=== PATIENT | female | born 1960 | race Caucasian/White ===

== ENCOUNTER 2016-05-13 10:49 | Inpatient (IN) | payer MEDICARE, OTHER ==
[~2016-05-13] VITALS: Ht 162.6 cm; Wt 100.0 kg
[~2016-05-13 10:49] MED LIST: BUSP15TA PO; BUSP5 PO; CLOT1%T TOPICAL; FURO20TA PO; GABA100C4 PO; LACT10SO47 PO; METO50TA PO; MORP1INJ45 PO; OMEP20TA PO; PRAV10 PO; PRAV20 PO; RIFA550 PO; SPIR100 PO; SPIR50TA21 PO; TIZA4 PO; ZOFR4TAB3 SL
[2016-05-13 11:09] VITALS: BP 113/56; PULSE 58; RESP 22; TEMP 97.9; O2SAT 97
--- NOTE | 2016-05-13 12:07 | RADRPT ---
EXAM DATE/TIME: 05/13/2016 11:56 [facility] COMPARISON: CHEST PA & LAT, January 20, 2015, 21:54. INDICATIONS : Short of breath. Syncope after fall 1 day ago. MEDICAL HISTORY : Hypercholesterolemia. Cirrhosis. Gastroesophageal reflux disease. Diabetes mellitus. Hepatitis. H ernia. Hypertension. Depression. Anxiety. SURGICAL HISTORY : section. Fusion, cervical. Paracentesis. Dilation and curettage. ENCOUNTER: Initial ACUITY: 1 day PAIN SCORE: 0/10 LOCATION: Bilateral chest FINDINGS: The heart is normal in size. The mediastinal contours are within normal limits. There mild, chronic a ppearing interstitial changes. The lungs are otherwise clear. The exam is similar to previous dated 1 03/22/14. There are postsurgical changes in the low cervical spine. CONCLUSION: 1. Mild, chronic interstitial changes. No acute abnormality. Antione Dowell MD on May 13, 2016 at 12:02 Board Certified Radiologist. This report was verified electronically.
[2016-05-13 12:33] LABS: BASOPHIL % 0.5 % (0.0-2.0); EOSINOPHIL # 0.3 TH/MM3 (0-0.4); EOSINOPHIL % 2.7 % (0.0-4.0); HEMATOCRIT 43.7 % (35.0-46.0); HEMO FLAGS DIFF FINAL; LYMPHOCYTE # 2.3 TH/MM3 (1.0-4.8); MEAN CELL VOLUME 91.4 FL (80.0-100.0); MEAN CORPUSCULAR HEMOGLOBIN 31.1 PG (27.0-34.0); MEAN CORPUSCULAR HGB CONC 34.1 % (32.0-36.0); NEUT % 62.8 % (16.0-70.0); PLATELET COUNT 144 TH/MM3 (150-450); RED BLOOD COUNT 4.78 MIL/MM3 (4.00-5.30); RED CELL DISTRIBUTION WIDTH 14.1 % (11.6-17.2); WHITE BLOOD COUNT 9.6 TH/MM3 (4.0-11.0)
[2016-05-13 12:45] VITALS: O2SAT 99
[2016-05-13 12:45] LABS: INTERNATIONAL NORMALIZED RATIO 1.2 RATIO; PROTHROMBIN TIME - PATIENT 13.3 SEC (9.8-11.6)
[2016-05-13 12:47] LABS: APTT (PATIENT) 26.6 SEC (24.3-30.1)
--- NOTE | 2016-05-13 13:13 | RADRPT ---
EXAM DATE/TIME: 05/13/2016 12:46 [facility] COMPARISON: CT ABDOMEN & PELVIS W CONTRAST, April 11, 2015, 21:32. INDICATIONS : Bilateral upper and lower extremity weakness with headache and vision changes. RADIATION DOSE: 56.78 CTDIvol (mGy) MEDICAL HISTORY : Hypertension. Encephalopathy SURGICAL HISTORY : None. ENCOUNTER: Initial ACUITY: 2 weeks PAIN SCALE: 3/10 LOCATION: Bilateral cranial TECHNIQUE: Multiple contiguous axial images were obtained of the head. Using automated exposure control and adj ustment of the mA and/or kV according to patient size, radiation dose was kept as low as reasonably a chievable to obtain optimal diagnostic quality images. FINDINGS: CEREBRUM: The ventricles are normal for age. No evidence of midline shift, mass lesion, hemorrhage or acute in farction. No extra-axial fluid collections are seen. POSTERIOR FOSSA: The cerebellum and brainstem are intact. The 4th ventricle is midline. The cerebellopontine angle i s unremarkable. EXTRACRANIAL: The visualized portion of the orbits is intact. SKULL: The calvaria is intact. No evidence of skull fracture. CONCLUSION: 1. No acute intracranial abnormality. Antione Dowell MD on May 13, 2016 at 13:10 Board Certified Radiologist. This report was verified electronically.
[2016-05-13 13:27] LABS: ALKALINE PHOSPHATASE 371 U/L (45-117); ALT (GPT) 19 U/L (10-53); ANION GAP 13 MEQ/L (5-15); AST (GOT) 30 U/L (15-37); BICARBONATE 24.2 MEQ/L (21.0-32.0); BLOOD UREA NITROGEN 12 MG/DL (7-18); CHLORIDE 93 MEQ/L (98-107); GLOMERULAR FILTRATION RATE 53 ML/MIN (>89); MAGNESIUM 1.8 MG/DL (1.5-2.5); POTASSIUM 4.9 MEQ/L (3.5-5.1); SODIUM (NA) 130 MEQ/L (136-145); TOTAL BILIRUBIN ADULT 1.8 MG/DL (0.2-1.0)
[2016-05-13] MEDS ORDERED: INSULIN HUMAN REGULAR 1,000 UNITS/10 ML VIAL SQ ONE (13:30)
[2016-05-13] MEDS ORDERED: SODIUM CHLOR 0.9% 1000 ML INJ 1,000 ML IV SCH (13:30)
[2016-05-13] MEDS ORDERED: LORazepam 2 MG/ML VIAL IV PUSH ONE (13:30)
--- NOTE | 2016-05-13 14:55 | PD ---
HPI Chief Complaint: Numbness/Tingling Time Seen by Provider: 14:49 Travel History International Travel<30 days: No Contact w/Intl Traveler<30days: No Traveled to known affect area: No History of Present Illness HPI 56-year-old female that presents to the ED for evaluation of numbness and tingling to her fingers especially on the right arm and right leg. Per patient she's had the leg numbness and tingling since having surgery on her neck. Per patient his been ongoing for 5 years. Per patient when scared wrist that she's had more numbness and tingling on her upper and lower extremities bilaterally which is new. Per patient she's been having also headaches and episodes of blurry vision. She has a history of cirrhosis with ascites for which she had a TIPS procedure which ever since has improved her symptoms. Per patient she follows up with her doctor who actually ordered an MRI to was supposed to be done today but she couldn't make it because she couldn't really ambulate secondary to her weakness to the lower extremities. Per patient the symptoms have been ongoing for almost 2 weeks and there seemed to be getting worse. She denies any falls or injuries. She does have a history of previous surgery to her neck. Per patient headaches, and go. Not the worst headaches of her life but achy with some blurriness. She denies any history of chest pain or shortness of breath. Per patient she denies any increase of weight or any worsening of her ammonia. She does have an allergy to contrast media. Per patient her pain is 5 out of 10. Mainly on the head. Of note patient has not been taking her diabetic medication because her blood sugar improved but was found to have a very high blood sugar today in the 400s. PFSH Past Medical History Arthritis: No Asthma: No Autoimmune Disease: No Bipolar Disorder: Yes Anxiety: Yes (generalized anxiety disorder) Depression: Yes (BIPOLAR Depression) Heart Rhythm Problems: No Cancer: No Cardiovascular Problems: Yes High Cholesterol: Yes Chemotherapy: No Chest Pain: No Congestive Heart Failure: No Cirrhosis: Yes (STAGE 4) COPD: No Cerebrovascular Accident: No Diabetes: Yes Patient Takes Glucophage: No Diminished Hearing: Yes Endocrine: Yes Gastrointestinal Disorders: Yes (GERD) GERD: Yes Genitourinary: Yes Headaches: Yes Hepatitis: Yes (CHIROSIS) Hiatal Hernia: No Hypertension: Yes Immune Disorder: No Implanted Vascular Access Dvce: Yes Kidney Stones: No Musculoskeletal: No Neurologic: Yes Psychiatric: Yes Reproductive: Yes Respiratory: Yes Immunizations Current: Yes Migraines: Yes Radiation Therapy: No Renal Failure: No Seizures: No Sickle Cell Disease: No Sleep Apnea: No Thyroid Disease: No Ulcer: No Tetanus Vaccination: < 5 Years ?: Not : 2 Para: 1 Miscarriage: 1 Dilation and Curettage (D&C): Yes Past Surgical History Abdominal Surgery: No AICD: No Arteriovenous Shunt: No Body Medical Devices: plate/screws in neck Cardiac Surgery: No Section: Yes Ear Surgery: No Endocrine Surgery: No Eye Surgery: No Genitourinary Surgery: No Gynecologic Surgery: Yes (D/C and C SECTION) Insulin Pump: No Joint Replacement: No Neurologic Surgery: No Oral Surgery: No Pacemaker: No Thoracic Surgery: No Other Surgery: Yes (exp lap) Social History Alcohol Use: No Tobacco Use: Yes (03/15 PPD) Substance Use: No Allergies-Medications (Allergen,Severity, Reaction): Coded Allergies: Contrast Media (Verified Adverse Reaction, Unknown, 05/13/16) Reported Meds & Prescriptions Reported Meds & Active Scripts Active Buspirone Hcl (Buspirone HCl) 15 Mg Tab 15 Mg PO BID Zofran ODT (Ondansetron HCl) 4 Mg Tab 4 Mg SL Q6H PRN FOR NAUSEA/VOMITING Clotrim Antifungal (Clotrimazole) Cre 1 Applic TOPICAL Q8HR 30 Days Furosemide 20 Mg Tab 20 Mg PO BID Pravastatin Sodium 20 Mg Tab 20 Mg PO DAILY Omeprazole 20 mg (Omeprazole) 20 Mg Tab 1 Tab PO DAILY Reported Morphine Sulfate Ir 15 mg (Morphine Sulfate) 15 Mg Tab 15 Mg PO Q4H PRN Xifaxan 550 Mg Tab (Rifaximin) 550 Mg Tab 550 Mg PO BID Spironolactone 50 Mg Tab 50 Mg PO QOD Spironolactone 100 Mg Tab 100 Mg PO QOD Buspar 5 Mg Tab (Buspirone HCl) 5 Mg Tab 5 Mg PO BID Pravastatin Sodium (Pravastatin Sod) 10 Mg Tab 20 Mg PO DAILY Zanaflex 4 mg (Tizanidine HCl) 4 Mg Tab 1 Tab PO DAILY Gabapentin 100 Mg Cap 100 Mg PO TID Enulose (Lactulose) Renetta 15 Ml PO 2-3 TIMES Metoprolol Tartrate 50 mg (Metoprolol Tartrate) 50 Mg Tab 50 Mg PO BID Review of Systems General / Constitutional: No: Fever, Chills, Weight Gain, Weight Loss, Other Eyes: No: Diploplia, Blurred Vision, Photophobia, Drainage, Redness, Foreign Body Sensation, Pain, Tearing, Blind Spots, Visual changes, Blindness, Other HENT: Positive: Headaches, Lightheadedness, No: Vertigo, Sore Throat, Rhinitis , Rhinorrhea, Congestion, Nosebleed, Neck Stiffness, Neck Pain, Masses, Gingival Bleeding, Dental Difficulties, Ear Discharge, Earache, Other Cardiovascular: No: Chest Pain or Discomfort, Palpitations, Irregular Rhythm, Tachycardia, Diaphoresis, Syncope, Dyspnea on exertion, Varicosities, Edema, Cyanosis, Varicosities, Phlebitis, Claudication, Other Respiratory: No: Cough, Shortness of Breath, Wheezing, Sneezing, Orthopnea, Hemoptysis, Stridor, Night Sweats, Pleuritic Pain, Other Gastrointestinal: No: Nausea, Vomiting, Diarrhea, Abdominal Pain, Hematemesis, Hematochezia, Constipation, Changes in Bowel Habits, Indigestion, Dysphagia, Loss of Appetite, Other Genitourinary: No: Urgency, Frequency, Dysuria, Nocturia, Hematuria, Decreased Urinary Output, Oliguria, Hesitancy, Dribbling, Incontinence, Pelvic Pain, Flank Pain, Dyspareunia, Discharge, Dysmenorrhea, Menorrhagia, Metorrhagia, Vaginal Bleeding, Other Musculoskeletal: No: Myalgias, Arthralgias, Limited ROM, Weakness, Cramping, Edema, Pain, Atrophy, Other Skin: No Rash, No Itching, No Dryness, No Lumps, No Hives, No Change in Pigmentation, No Change in nails, No Alopecia, No Lesions, No Breast Lumps, No Breast Tenderness, No Breast Swelling, No Other Neurologic: Positive: Weakness, Headache, Paresthesia, No: Dizziness, Syncope , Focal Abnormalities, Coordination Problem, Tremor, Ataxia, Change in Mentation , Slurred Speech, Incontinence, Seizures, Sensory Disturbance, Other Psychiatric: No: Anxiety, Depression, Suicidal Ideations, Disorder of Thought, Mood Disorder, Substance Abuse, Homicidal Ideation, Other Endocrine: No: Heat Intolerance, Cold Intolerance, Polyuria, Polydipsia, Other Hematologic/Lymphatic: No: Easy Bruising, Lymph Node Enlargement, Other Physical Exam Narrative GENERAL: SKIN: Warm and dry. HEAD: Atraumatic. Normocephalic. EYES: Pupils equal and round 4 mm reactive to light and accommodation. No scleral icterus. No injection or drainage. ENT: No nasal bleeding or discharge. Mucous membranes pink and moist. Tongue is midline. No uvula deviation. NECK: Trachea midline. No JVD. CARDIOVASCULAR: Regular rate and rhythm. No murmurs, S3, S4. RESPIRATORY: No accessory muscle use. Clear to auscultation. Breath sounds equal bilaterally. GASTROINTESTINAL: Abdomen soft, non-tender, nondistended. Hepatic and splenic margins not palpable. MUSCULOSKELETAL: Extremities without clubbing, cyanosis, or edema. No obvious deformities. Full range of motion of the upper and lower extremities bilaterally. 2+ pulses bilaterally. No lumbar, thoracic, cervical spine tenderness to palpation. NEUROLOGICAL: Awake and alert. No obvious cranial nerve deficits. Motor grossly within normal limits. Five out of 5 muscle strength in the arms and legs. Normal speech. PSYCHIATRIC: Appropriate mood and affect; insight and judgment normal. Data Data Last Documented VS Vital Signs Date Time Temp Pulse Resp B/P Pulse Ox O2 Delivery O2 Flow Rate FiO2 05/13/16 12:45 99 05/13/16 11:09 97.9 58 22 113/56 Orders Electrocardiogram (05/13/16 11:35) Complete Blood Count With Diff (05/13/16 11:35) Comprehensive Metabolic Panel (05/13/16 11:35) Prothrombin Time / Inr (Pt) (05/13/16 11:35) Act Partial Throm Time (Ptt) (05/13/16 11:35) Urinalysis - C+S If Indicated (05/13/16 11:35) Magnesium (Mg) (05/13/16 11:35) Ammonia (05/13/16 11:35) Chest, Single Ap (05/13/16 11:35) Ct Brain W/O Iv Contrast(Rout) (05/13/16 11:35) Iv Access Insert/Monitor (05/13/16 11:35) Ecg Monitoring (05/13/16 11:35) Oximetry (05/13/16 11:35) Mri Brain W/O Contrast (05/13/16 13:27) Mri T Spine W/O Contrast (05/13/16 13:27) Mri L Spine W/O Contrast (05/13/16 13:27) Lorazepam Inj (Ativan Inj) (05/13/16 13:30) Sodium Chlor 0.9% 1000 Ml Inj (Ns 1000 M (05/13/16 13:30) Insulin Human Regular Inj (Novolin R Inj (05/13/16 13:30) Mri C Spine W&W/O Contrast (05/13/16 13:27) Gadodiamide Pf Inj (Omniscan Pf Inj) (05/13/16 17:28) Labs Laboratory Tests Test 05/13/16 12:10 White Blood Count 9.6 TH/MM3 Red Blood Count 4.78 MIL/MM3 Hemoglobin 14.9 GM/DL Hematocrit 43.7 % Mean Corpuscular Volume 91.4 FL Mean Corpuscular Hemoglobin 31.1 PG Mean Corpuscular Hemoglobin 34.1 % Concent Red Cell Distribution Width 14.1 % Platelet Count 144 TH/MM3 Mean Platelet Volume 10.2 FL Neutrophils (%) (Auto) 62.8 % Lymphocytes (%) (Auto) 24.0 % Monocytes (%) (Auto) 10.0 % Eosinophils (%) (Auto) 2.7 % Basophils (%) (Auto) 0.5 % Neutrophils # (Auto) 6.0 TH/MM3 Lymphocytes # (Auto) 2.3 TH/MM3 Monocytes # (Auto) 1.0 TH/MM3 Eosinophils # (Auto) 0.3 TH/MM3 Basophils # (Auto) 0.0 TH/MM3 CBC Comment DIFF FINAL Differential Comment Prothrombin Time 13.3 SEC Prothromb Time International 1.2 RATIO Ratio Activated Partial 26.6 SEC Thromboplast Time Sodium Level 130 MEQ/L Potassium Level 4.9 MEQ/L Chloride Level 93 MEQ/L Carbon Dioxide Level 24.2 MEQ/L Anion Gap 13 MEQ/L Blood Urea Nitrogen 12 MG/DL Creatinine 1.07 MG/DL Estimat Glomerular Filtration 53 ML/MIN Rate Random Glucose 536 MG/DL Calcium Level 9.0 MG/DL Magnesium Level 1.8 MG/DL Total Bilirubin 1.8 MG/DL Aspartate Amino Transf 30 U/L (AST/SGOT) Alanine Aminotransferase 19 U/L (ALT/SGPT) Alkaline Phosphatase 371 U/L Ammonia 58 MCMOL/L Total Protein 6.6 GM/DL Albumin 2.8 GM/DL MDM Medical Decision Making Medical Screen Exam Complete: Yes Emergency Medical Condition: Yes Medical Record Reviewed: Yes Interpretation(s) CBC & BMP Diagram 05/13/16 12:10 LFTs within normal limits. Ammonia elevated in 58. Last Impressions Thoracic Spine MRI 05/13/161326 Signed Impressions: Service Date/Time: May 16:24 - CONCLUSION: Normal examination. Kevin Larry MD Lumbar Spine MRI 05/13/161326 Signed Impressions: Service Date/Time: May 16:24 - CONCLUSION: 1. Mild stenosis at L2-L3 without acute disc protrusion. 2. Mild bilateral foraminal narrowing at L5-S1 Abhijit Barber MD Cervical Spine MRI 05/13/161326 Signed Impressions: Service Date/Time: May 16:24 - CONCLUSION: 1. Postsurgical changes as above. 2. Osteophytic spur to the left at C6-C7 flattening the thecal sac and cord with mild stenosis. CT scan is recommended for further evaluation if clinically indicated. Abhijit Barber MD Brain MRI 05/13/161326 Signed Impressions: Service Date/Time: May 16:24 - CONCLUSION: 1. No evidence of acute intracranial pathology. No masses are identified. Abhijit Barber MD Head CT 05/13/[id number] Signed Impressions: Service Date/Time: May 12:46 - CONCLUSION: 1. No acute intracranial abnormality. Antione Dowell MD Chest X-Ray 05/13/[id number] Signed Impressions: Service Date/Time: May 11:56 - CONCLUSION: 1. Mild, chronic interstitial changes. No acute abnormality. Antione Dowell MD Differential Diagnosis Fluid overload versus encephalopathy versus hyperglycemia versus DKA versus hepatic encephalopathy versus radiculopathy versus mass versus pseudotumor cerebri versus generalized weakness Narrative Course 56-year-old female that presents to the ED for evaluation of generalized weakness, headaches and blurry vision. Patient was properly examined and was found to have signs and symptoms of inflammatory at this time. Patient does have a history of encephalopathy as well as diabetes. Patient is noncompliant with diabetic medication as apparently medication was the see secondary to improvement of her blood sugars. Today she was found to have a sugar of 400. At this time recommendation is for labs and imaging. Patient is agreeable with this. Labs and imaging showed hyperglycemia as well as elevated ammonia. Labs and imaging were essentially otherwise unremarkable. MRIs of the spine as well as the brain did not show any sign of acute disease other than the cervical spine which shows some chronic changes. I initially discussed findings with family member and patient and they both were reassured but Does Tell Me That Patient Has Been Having More Confusion and Altered Patient Than Usual. Patient seems to be getting more weak and her sugars have been high. Patient takes no medications for her sugars. She's been out of her medications for almost a year as her doctor initially stopped all her medications for unclear reason. Patient appears to be hyperglycemic even after given insulin as well as fluids. This time I recommend admission for hepatic encephalopathy as well as diabetes mellitus. She was agreeable with this plan. NIR was paged and Dr. Ramirez agreed to admission. Diagnosis Primary Impression: Hepatic encephalopathy Additional Impression: DM (diabetes mellitus) Qualified Code: E11.8 - Type 2 diabetes mellitus with complication, without long-term current use of insulin Admitting Information Admitting Physician Requests: Admit Yury Toussaint May 13, 2016 14:55
--- NOTE | 2016-05-13 16:59 | RADRPT ---
EXAM DATE/TIME: 05/13/2016 16:24 [facility] COMPARISON: No previous studies available for comparison. INDICATIONS : Radiculopathy. Numbness in arms and legs. MEDICAL HISTORY : Gastroesophageal reflux disease. Liver disease, anxiety and bipolar disorder. SURGICAL HISTORY : section. TIPS liver shunt and neck fusion. ENCOUNTER: Initial ACUITY: 1 day PAIN SCORE: 0/10 LOCATION: Back. TECHNIQUE: Multiplanar multisequence MRI of the thoracic spine was performed. FINDINGS: VERTEBRA: Normal vertebral body height. Homogeneous marrow signal. ALIGNMENT: Normal. CORD: Normal position and configuration. T1-T2: Normal. T2-T3: The thecal sac has a normal diameter. No evidence of disc bulge or protrusion. T3-T4: The thecal sac has a normal diameter. No evidence of disc bulge or protrusion. T4-T5: The thecal sac has a normal diameter. No evidence of disc bulge or protrusion. T5-T6: The thecal sac has a normal diameter. No evidence of disc bulge or protrusion. T6-T7: The thecal sac has a normal diameter. No evidence of disc bulge or protrusion. T7-T8: The thecal sac has a normal diameter. No evidence of disc bulge or protrusion. T8-T9: The thecal sac has a normal diameter. No evidence of disc bulge or protrusion. T9-T10: The thecal sac has a normal diameter. No evidence of disc bulge or protrusion. T10-T11: The thecal sac has a normal diameter. No evidence of disc bulge or protrusion. T11-T12: The thecal sac has a normal diameter. No evidence of disc bulge or protrusion. T12-L1: The thecal sac has a normal diameter. No evidence of disc bulge or protrusion. CONCLUSION: Normal examination. Kevin Larry MD on May 13, 2016 at 16:57 Board Certified Radiologist. This report was verified electronically.
--- NOTE | 2016-05-13 17:08 | RADRPT ---
EXAM DATE/TIME: 05/13/2016 16:24 [facility] COMPARISON: No previous studies available for comparison. INDICATIONS : Radiculopathy. Numbess in arms and legs. MEDICAL HISTORY : Gastroesophageal reflux disease. Liver disease, anxiety and bipolar disorder. SURGICAL HISTORY : section. TIPS liver shunt and neck fusion. ENCOUNTER: Initial ACUITY: 1 day PAIN SCORE: 0/10 LOCATION: Back. TECHNIQUE: Multiplanar multisequence MRI of the lumbar spine was performed without contrast. FINDINGS: Sagittal images demonstrate normal vertebral body alignment and curvature. No focal areas of marrow r eplacement are identified. The conus terminates normally. Axial images were performed from T12-L1 thr ough L5-S1. T12-L1: No significant abnormalities identified. L1-L2: There is no evidence of disc protrusion or spinal canal stenosis. There is mild facet arthritis bilat erally. L2-L3: There is mild annular bulge of the disc. There is moderate facet arthritis bilaterally with ligamentu m flavum hypertrophy. There is mild spinal canal stenosis. The neural foramina are clear bilaterally. L3-L4: There is mild annular bulge of the disc. There is mild facet arthritis and ligamentum flavum hypertro phy bilaterally. The neural foramina are clear bilaterally. L4-L5: There is mild diffuse annular bulge of the disc. The neural foramina are clear bilaterally. There is no significant spinal canal stenosis. L5-S1: There is no significant spinal canal stenosis. There is fusion across the disc which appears chronic. There is mild neural foraminal narrowing bilaterally. CONCLUSION: 1. Mild stenosis at L2-L3 without acute disc protrusion. 2. Mild bilateral foraminal narrowing at L5-S1 Abhijit Barber MD on May 13, 2016 at 16:59 Board Certified Radiologist. This report was verified electronically.
[2016-05-13] MEDS ORDERED: GADODIAMIDE PF 287 MG/ML 20 ML VIAL (for RAD MRI) IV ONE (17:28)
--- NOTE | 2016-05-13 17:30 | RADRPT ---
EXAM DATE/TIME: 05/13/2016 16:24 [facility] COMPARISON: No previous studies available for comparison. INDICATIONS : CVA. Numbness in arms and legs and blurry vision. MEDICAL HISTORY : Gastroesophageal reflux disease. Liver disease, anxiety and bipolar disorder. SURGICAL HISTORY : section. TIPS liver shunt and neck fusion. ENCOUNTER: Initial ACUITY: 1 day PAIN SCORE: 0/10 LOCATION: Head. TECHNIQUE: Multiplanar, multisequence MRI of the brain was performed without contrast. FINDINGS: CEREBRUM: The ventricles are normal for age. No evidence of midline shift, mass lesion, hemorrhage or acute in farction. No extraaxial fluid collections are seen. The pituitary gland and suprasellar cistern are normal in configuration. WHITE MATTER: No significant signal abnormalities are seen in the white matter. POSTERIOR FOSSA: The cerebellum and brainstem are intact. The 4th ventricle is midline. The cerebellopontine angle is unremarkable. The cerebellar tonsils are normal in position. DIFFUSION IMAGING: No focal areas of restricted diffusion are seen. No evidence of acute infarction. EXTRACRANIAL: The visualized portions of the orbits and paranasal sinuses are unremarkable. CONCLUSION: 1. No evidence of acute intracranial pathology. No masses are identified. Abhijit Barber MD on May 13, 2016 at 17:27 Board Certified Radiologist. This report was verified electronically.
--- NOTE | 2016-05-13 17:52 | RADRPT ---
EXAM DATE/TIME: 05/13/2016 16:24 [facility] COMPARISON: No previous studies available for comparison. INDICATIONS : Radiculopathy. Numbness in arms and legs. CONTRAST: 20 cc Omniscan (gadodiamide) IV MEDICAL HISTORY : Gastroesophageal reflux disease. Liver disease, anxiety and bipolar disorder. SURGICAL HISTORY : section. TIPS liver shunt and neck fusion. ENCOUNTER: Initial ACUITY: 1 day PAIN SCORE: 0/10 LOCATION: Neck. TECHNIQUE: Multiplanar, multisequence MRI examination of the cervical spine was performed. FINDINGS: Sagittal images demonstrate normal vertebral body alignment and curvature. No focal areas of marrow r eplacement are identified. The craniocervical junction appears normal. The cord itself is normal in c aliber and signal intensity. Axial images were performed from C2-3 through C7-T1. There is anterior c ervical fusion with a plate anteriorly from C5-C7. C2-C3: No significant abnormalities identified. C3-C4: No significant abnormalities identified. C4-C5: There is mild diffuse annular bulge of the disc. The neural foramina are clear bilaterally. There is no significant spinal canal stenosis. C5-C6: Postsurgical changes as above. There is no evidence of disc protrusion or spinal canal stenosis. C6-C7: Postsurgical changes as above. there are findings most consisted of ossification to the left flatteni ng the thecal sac and cord. The neural foramina are clear bilaterally. There is mild spinal canal marlene nosis. C7-T1: No significant abnormalities identified. CONCLUSION: 1. Postsurgical changes as above. 2. Osteophytic spur to the left at C6-C7 flattening the thecal sac and cord with mild stenosis. CT sc an is recommended for further evaluation if clinically indicated. Abhijit Barber MD on May 13, 2016 at 17:44 Board Certified Radiologist. This report was verified electronically.
[2016-05-13 18:23] VITALS: BP 113/60; PULSE 66; RESP 16; O2SAT 94
[2016-05-13] MEDS ORDERED: ACETAMINOPHEN 325 MG TAB PO PRN (19:00)
[2016-05-13] MEDS ORDERED: MAGNESIUM HYDROXIDE SUSP 30 ML CUP PO PRN (19:00)
[2016-05-13] MEDS ORDERED: SODIUM CHLORIDE 0.9% FLUSH 5 ML FLUSH FLUSH PRN (19:00)
[2016-05-13] MEDS ORDERED: ONDANSETRON HCL 4 MG/2 ML VIAL IVP PRN (19:00)
[2016-05-13] MEDS ORDERED: GLUCAGON 1 MG/ML VIAL OTHER PRN (19:00)
[2016-05-13] MEDS ORDERED: DEXTROSE 50% IN WATER 50 ML VIAL(D50) IV PUSH PRN (19:00)
[2016-05-13] MEDS ORDERED: NALOXONE HCL 0.4 MG/ML AMP IV PRN (19:00)
[2016-05-13 19:48] VITALS: O2SAT 94
[2016-05-13 19:48] LABS: BACTERIA, URINE RARE /hpf; BLOOD, URINE NEG (NEG); COMMENT (UR) CULTURE INDICATED; CULTURE IF INDICATED CULTURE INDICATED; GLUCOSE,URINE 1000 mg/dL (NEG); KETONE, URINE NEG (NEG); NITRITE,URINE NEG (NEG); SQUAMOUS EPITHELIAL CELL URINE 2 /hpf (0-5); URINE COLOR YELLOW (YELLW/STRAW)
[2016-05-13] MEDS ORDERED: BUSP10TA PO (19:50)
[2016-05-13] MEDS ORDERED: ANTI1CRE6 TOP (19:52)
[2016-05-13] MEDS ORDERED: CALCTAB70 PO (19:59)
[2016-05-13] MEDS ORDERED: VITA10003 PO (19:59)
[2016-05-13] MEDS ORDERED: MSIR15 PO (19:59)
[2016-05-13] MEDS ORDERED: LACT10SO PO (19:59)
[2016-05-13] MEDS ORDERED: VARE1 PO (19:59)
[2016-05-13] MEDS ORDERED: GABA100C4 PO (19:59)
[2016-05-13] MEDS ORDERED: XIFA550T4 PO (19:59)
[2016-05-13] MEDS ORDERED: OMEP20TA PO (19:59)
[2016-05-13] MEDS ORDERED: FURO20TA PO (19:59)
[2016-05-13] MEDS ORDERED: TIZA4TAB PO (19:59)
[2016-05-13] MEDS ORDERED: SPIR50TA PO (19:59)
[2016-05-13] MEDS ORDERED: PRAV20TA2 PO (19:59)
[2016-05-13] MEDS ORDERED: MIDO5TAB PO (19:59)
[2016-05-13] MEDS: SODIUM CHLOR 0.9% 1000 ML INJ 1,000 ML IV SCH (20:37)
[2016-05-13] MEDS: SODIUM CHLORIDE 0.9% FLUSH 5 ML FLUSH FLUSH SCH (20:37)
[2016-05-13] MEDS: INSULIN ASPART SUPPLEMENTAL SCALE SQ SCH (20:38)
--- NOTE | 2016-05-13 23:32 | HHI.HP ---
[facility]Staff Admission Diagnosis hepatic encephalopahty, hyperglycemia Diagnoses: Chief Complaint: Weakness, confusion, numbness RUE Travel History International Travel<30 Days: No Contact w/Intl Traveler <30 Da: No Traveled to Known Affected Are: No History of Present Illness 56 y/o female with a history of HTN, DM(not on any medication), cirrhosis, and hepatic encephalopathy presents to the ED with complaints of right upper extremity numbness, bilateral lower extremities and dizziness. Patient states she has been feeling this way for about a week and she has been falling at home. She is unsure if she has had any LOC. Patient's states at times she has witnessed her sitting in the chair and she has gone limp, but then she would wake up. He states over the last 3 weeks the patient has been getting weaker and having blurry vision. Her last fall at home was Tuesday. He states she complains of constant headaches, with some confusion at times. He states he confusion comes and goes daily. She is also complaining of severe abdominal pain throughout. Denies constipation , states she does have multiple bowl movements a day. She denies any chest pain, nausea, fever or chills. Per the patients she was taken off her metformin, and metoprolol one year ago, and does not take her sugar at home. She did take prednisone 2 weeks ago. She is also wheelchair bound at home. Her PCP is a with [facility]. Review of Systems Constitutional: COMPLAINS OF: Dizziness, Change in appetite, DENIES: Fever, Chills Eyes: COMPLAINS OF: Blurred vision Respiratory: DENIES: Cough, Sputum production, Shortness of breath Cardiovascular: DENIES: Chest pain, Lower Extremity Edema Gastrointestinal: DENIES: Constipation, Diarrhea, Nausea, Vomiting Genitourinary: DENIES: Hematuria, Dysuria Musculoskeletal: DENIES: Back pain, Neck pain Integumentary: COMPLAINS OF: Rash Hematologic/lymphatic: DENIES: Lymphadenopathy Immunologic/allergic: DENIES: Urticaria Neurologic: COMPLAINS OF: Localized weakness Past Family Social History Past Medical History HTN (not currently on medications) DM( not currently on medications) Cirrhosis Hepatic encephalopathy Past Surgical History Spinal Surgery C6-C7 D&C Tips procedure C Section Reported Medications Reported Meds & Active Scripts Active Reported Calcium 600 + D (Calcium Carbonate-Vitamin D) 600-400 Mg-Unit Tab 1 Tab PO DAILY Vitamin D-3 (Cholecalciferol) 1,000 Unit Tab 1,000 Units PO DAILY Midodrine 5 Mg Tab 5 Mg PO BID Chantix (Varenicline) 1 Mg Tab 1 Mg PO BIDPC Tizanidine (Tizanidine HCl) 4 Mg Tab 4 Mg PO TID Spironolactone 50 Mg Tab 50 Mg PO DAILY Xifaxan (Rifaximin) 550 Mg Tab 550 Mg PO BID Pravastatin 20 Mg Tab 20 Mg PO HS Omeprazole 20 Mg Tab 20 Mg PO DAILY Morphine IR (Morphine Sulfate) 15 Mg Tab 15 Mg PO Q4H PRN Lactulose Liq (Lactulose) 10 Gm/15 Ml Soln 15 Ml PO 2-3 TIMES DAILY Gabapentin 100 Mg Cap 100 Mg PO TID Furosemide 20 Mg Tab 20 Mg PO DAILY Anti-Fungal (Clotrimazole (Topical)) 1 % Cre 1 Applic TOP Q8HR Buspirone (Buspirone HCl) 10 Mg Tab 20 Mg PO BID Allergies: Coded Allergies: Contrast Media (Verified Adverse Reaction, Unknown, 05/13/16) Active Ordered Medications Current Medications Medications (Trade) Dose Ordered Sig/David Route Start Time Stop Time Status Last Admin (NS 1000 ml Inj) 1,000 ml @ 100 mls/hr Q10H IV 05/13/16 20:00 05/13/16 20:37 (NS Flush) 2 ml UNSCH PRN FLUSH 05/13/16 19:00 (NS Flush) 2 ml BID FLUSH 05/13/16 21:00 05/13/16 20:37 (Tylenol) 650 mg Q4H PRN PO 05/13/16 19:00 (Zofran Inj) 4 mg Q6H PRN IVP 05/13/16 19:00 (Milk Of Magnesia Liq) 30 ml Q12H PRN PO 05/13/16 19:00 (Narcan Inj) 0.4 mg UNSCH PRN IV 05/13/16 19:00 (D50w (Vial) Inj) 25 ml UNSCH PRN IV PUSH 05/13/16 19:00 (Glucagon Inj) 1 mg UNSCH PRN OTHER 05/13/16 19:00 Family History Patient was adopted and does not know family history Social History Tobacco use: / PPD Alcohol use: Denies Illicit drug use: Denies Physical Exam Vital Signs Vital Signs Date Time Temp Pulse Resp B/P Pulse Ox O2 Delivery O2 Flow Rate FiO2 05/13/16 19:48 94 21 05/13/16 18:23 66 16 113/60 94 05/13/16 12:45 99 05/13/16 11:09 97.9 58 22 113/56 97 Physical Exam GENERAL: This is a well-nourished, well-developed patient, in no apparent distress. SKIN: Red Rash to right hand HEAD: Atraumatic. Normocephalic. EYES: Pupils equal round and reactive. ENT: Nose without bleeding, purulent drainage or septal hematoma. Airway patent. NECK: Trachea midline. No JVD CARDIOVASCULAR: Regular rate and rhythm without murmurs, gallops, or rubs. RESPIRATORY: Clear to auscultation. Breath sounds equal bilaterally. No wheezes , rales, or rhonchi. GASTROINTESTINAL: Abdomen soft, tender, nondistended. No hepato-splenomegaly, or palpable masses. No guarding. MUSCULOSKELETAL: Extremities without clubbing, cyanosis, or edema. No joint tenderness, effusion, or edema noted. No calf tenderness. NEUROLOGICAL: Awake and alert. Motor and sensory grossly within normal limits. Normal speech. Laboratory Laboratory Tests Test 05/13/16 05/13/16 12:10 18:05 White Blood Count 9.6 Red Blood Count 4.78 Hemoglobin 14.9 Hematocrit 43.7 Mean Corpuscular Volume 91.4 Mean Corpuscular Hemoglobin 31.1 Mean Corpuscular Hemoglobin 34.1 Concent Red Cell Distribution Width 14.1 Platelet Count 144 Mean Platelet Volume 10.2 Neutrophils (%) (Auto) 62.8 Lymphocytes (%) (Auto) 24.0 Monocytes (%) (Auto) 10.0 Eosinophils (%) (Auto) 2.7 Basophils (%) (Auto) 0.5 Neutrophils # (Auto) 6.0 Lymphocytes # (Auto) 2.3 Monocytes # (Auto) 1.0 Eosinophils # (Auto) 0.3 Basophils # (Auto) 0.0 CBC Comment DIFF FINAL Differential Comment Prothrombin Time 13.3 Prothromb Time International 1.2 Ratio Activated Partial 26.6 Thromboplast Time Sodium Level 130 Potassium Level 4.9 Chloride Level 93 Carbon Dioxide Level 24.2 Anion Gap 13 Blood Urea Nitrogen 12 Creatinine 1.07 Estimat Glomerular Filtration 53 Rate Random Glucose 536 Calcium Level 9.0 Magnesium Level 1.8 Total Bilirubin 1.8 Aspartate Amino Transf 30 (AST/SGOT) Alanine Aminotransferase 19 (ALT/SGPT) Alkaline Phosphatase 371 Ammonia 58 Total Protein 6.6 Albumin 2.8 Urine Color YELLOW Urine Turbidity HAZY Urine pH 6.0 Urine Specific [place] 1.031 Urine Protein NEG Urine Glucose (UA) 1000 Urine Ketones NEG Urine Occult Blood NEG Urine Nitrite NEG Urine Bilirubin NEG Urine Urobilinogen LESS THAN 2.0 Urine Leukocyte Esterase LARGE Urine RBC 11 Urine WBC 57 Urine Squamous Epithelial 2 Cells Urine Bacteria RARE Microscopic Urinalysis Comment CULTURE INDICATED Date/Time Procedure Status Source Growth 05/13/16 18:05 Urine Culture Received Urine Random Urine Pending Result Diagram: 05/13/16 1210 05/13/16 1210 Imaging Last Impressions Thoracic Spine MRI 05/13/161326 Signed Impressions: Service Date/Time: May 16:24 - CONCLUSION: Normal examination. Kevin Larry MD Lumbar Spine MRI 05/13/161326 Signed Impressions: Service Date/Time: May 16:24 - CONCLUSION: 1. Mild stenosis at L2-L3 without acute disc protrusion. 2. Mild bilateral foraminal narrowing at L5-S1 Abhijit Barber MD Cervical Spine MRI 05/13/161326 Signed Impressions: Service Date/Time: May 16:24 - CONCLUSION: 1. Postsurgical changes as above. 2. Osteophytic spur to the left at C6-C7 flattening the thecal sac and cord with mild stenosis. CT scan is recommended for further evaluation if clinically indicated. Abhijit Barber MD Brain MRI 05/13/161326 Signed Impressions: Service Date/Time: May 16:24 - CONCLUSION: 1. No evidence of acute intracranial pathology. No masses are identified. Abhijit Barber MD Head CT 05/13/16 [id number] Signed Impressions: Service Date/Time: May 12:46 - CONCLUSION: 1. No acute intracranial abnormality. Antione Dowell MD Chest X-Ray 05/13/16 1135 Signed Impressions: Service Date/Time: May 11:56 - CONCLUSION: 1. Mild, chronic interstitial changes. No acute abnormality. Antione Dowell MD Assessment and Plan Problem List: (1) Generalized weakness ICD Code: R53.1 Status: Acute (2) Hyperammonemia ICD Code: E72.20 Status: Acute (3) Hyperglycemia ICD Code: R73.9 Status: Acute (4) UTI (urinary tract infection) ICD Code: N39.0 Status: Acute Assessment and Plan 56 y/o female with a history of HTN, DM(not on any medication), cirrhosis, and hepatic encephalopathy presents with: Generalized weakness Images: Head Ct negative, Brain MRI negative, Cervical spine MRI shows Osteophytic spur to the left at C6-C7 flattening the thecal sac and cord with mild stenosis. CT scan is recommended for further evaluation if clinically indicated., Thoracic MRI negative, lumbar spine MRI shows Mild stenosis at L2- L3 without acute disc protrusion. Mild bilateral foraminal narrowing at L5-S1 -EEG ordered -TSH ordered -Pt eval and treat Hyperammonemia, although patient is A&O Labs: Ammonia 58 -Lactulose increased to 30ml TID -Monitor mental status -Order home medications rifaximin Hyperglycemia Labs: BS on arrival 536 -8 Units given in ED -Accu checks Q4h -BMP in AM -A1C ordered UTI UA: large leukocyte esterase -Culture pending -Cipro IV Q12h Dvt prophylaxis: scds Written by Maria Esther MORALEZ, acting as scribe for Dr. Whitaker on 05/13/16 at 2305. The documentation accurately reflects the work performed [id number] and decisions made by me and the physician Dr Whitaker on 05/13/16. The documentation accurately reflects the work performed [id number] by me on at 2305 Discussed Condition With Patient, patient's and ED physician Physician Certification 2 Midnight Certification Type: Admission for Inpatient Services Order for Inpatient Services The services are ordered in accordance with Medicare regulations or non- Medicare payer requirements, as applicable. In the case of services not specified as inpatient-only, they are appropriately provided as inpatient services in accordance with the 2-midnight benchmark. Estimated LOS (days): 3 days is the estimated time the patient will need to remain in the hospital, assuming treatment plan goals are met and no additional complications. Post-Hospital Plan: Not yet determined Maria Esther Terry May 13, 2016 23:32 Birttany Whitaker MD May 14, 2016 08:49
[2016-05-14] VITALS (8 sets, daily range): BP systolic 102–181; BP diastolic 48–102; PULSE 87–124; RESP 16–24; TEMP 97.8–100.4; O2SAT 96–98
[2016-05-14] MEDS: CIPROFLOXACIN 400 MG PREMIX 200 ML IV SCH ×2 (00:12→12:16)
[2016-05-14] MEDS: LACTULOSE SYRUP 20 GM/30 ML CUP PO SCH ×4 (00:34→16:07)
[2016-05-14] MEDS: SODIUM CHLOR 0.9% 1000 ML INJ 1,000 ML IV SCH (06:20)
[2016-05-14] MEDS: SODIUM CHLORIDE 0.9% FLUSH 5 ML FLUSH FLUSH SCH ×2 (08:22→21:27)
[2016-05-14] MEDS: FUROSEMIDE 20 MG TAB PO SCH (08:22)
[2016-05-14] MEDS: PANTOPRAZOLE SOD 20 MG DELAYED RELEASE TAB PO SCH (08:22)
[2016-05-14] MEDS: GABAPENTIN 100 MG CAP PO SCH ×3 (08:22→16:07)
[2016-05-14] MEDS: INSULIN ASPART SUPPLEMENTAL SCALE SQ SCH ×4 (08:25→21:28)
[2016-05-14 09:24] LABS: AUTOMATED NEUTROPHIL # 7.7 TH/MM3 (1.8-7.7); BASOPHIL % 0.4 % (0.0-2.0); EOSINOPHIL # 0.2 TH/MM3 (0-0.4); EOSINOPHIL % 1.8 % (0.0-4.0); HEMATOCRIT 44.6 % (35.0-46.0); HEMO FLAGS DIFF FINAL; LYMPH % 25.9 % (9.0-44.0); LYMPHOCYTE # 3.2 TH/MM3 (1.0-4.8); MEAN CELL VOLUME 89.1 FL (80.0-100.0); MEAN CORPUSCULAR HGB CONC 34.7 % (32.0-36.0); MONO % 10.1 % (0.0-8.0); NEUT % 61.8 % (16.0-70.0); PLATELET COUNT 154 TH/MM3 (150-450); RED CELL DISTRIBUTION WIDTH 14.7 % (11.6-17.2); WHITE BLOOD COUNT 12.5 TH/MM3 (4.0-11.0)
[2016-05-14 09:55] LABS: BICARBONATE 21.5 MEQ/L (21.0-32.0); POTASSIUM 3.9 MEQ/L (3.5-5.1)
[2016-05-14] MEDS: busPIRone HCL 10 MG TAB PO SCH ×2 (10:32→21:27)
[2016-05-14] MEDS: RIFAXIMIN 550 MG TAB PO SCH ×2 (10:32→21:27)
[2016-05-14] MEDS: SPIRONOLACTONE 50 MG TAB PO SCH (10:32)
[2016-05-14] MEDS: MIDODRINE 5 MG TAB PO SCH ×2 (10:33→21:27)
[2016-05-14 10:35] LABS: HEMOGLOBIN A1a 1.1 %; HEMOGLOBIN A1b 1.5 %; HEMOGLOBIN Ao 72.5 %; HEMOGLOBIN LA1C 4.6 %; HEMOGLOBIN P3 6.6 %
[2016-05-14] MEDS: MORPHINE SULFATE 15 MG TAB PO PRN (13:10)
--- NOTE | 2016-05-14 13:28 | HHI.PR ---
Subjective Remarks This is a pleasant 56 y/o Female who came to ER with weakness, confusion, Numbness RUE, Hepatic encephalopathy, Hyperglycemia, has Hypertension, DM II, Cirrhosis, has Bilateral lower extremity numbness and dizziness, for one week, had blurred vision, recent status post fall she is Wheelchair bound at home, status post spinal surgery C6-C7, TIPS procedure, Tobacco dependence. patient seen in the presence of nurse Miss Marin, stable also her in the room, she has chronic Recurrent syncope as per her already had complete cardiac workup, at this time with Intention Tremor bilateral. Febrile, has UTI asked for blood cultures switch to Ceftriaxone IV and following. she also asking for her home pain medicine she uses Morphine IR. Objective Vital Signs Date Time Temp Pulse Resp B/P Pulse Ox O2 Delivery O2 Flow Rate FiO2 05/14/16 13:00 124 24 167/72 98 05/14/16 11:00 114 16 181/102 97 Room Air 21 05/14/16 10:00 98.5 119 23 146/77 98 Room Air 21 05/14/16 07:30 97.8 110 20 96 Room Air 05/14/16 07:30 110 96 Room Air 05/14/16 00:00 87 18 123/56 98 Room Air 05/13/16 19:48 94 21 05/13/16 18:23 66 16 113/60 94 I/O 05/13/16 05/13/16 05/13/16 05/14/16 05/14/16 05/14/16 07:00 15:00 23:00 07:00 15:00 23:00 Intake Total 320 ml Output Total 300 ml Balance 20 ml Intake Oral 320 ml Output Emesis 300 ml Result Diagram: 05/14/16 0904 05/14/16 0904 Imaging Last Impressions Thoracic Spine MRI 05/13/167 Signed Impressions: Service Date/Time: May 16:24 - CONCLUSION: Normal examination. Kevin Larry MD Lumbar Spine MRI 05/13/161326 Signed Impressions: Service Date/Time: May 16:24 - CONCLUSION: 1. Mild stenosis at L2-L3 without acute disc protrusion. 2. Mild bilateral foraminal narrowing at L5-S1 Abhijit Barber MD Cervical Spine MRI 05/13/161326 Signed Impressions: Service Date/Time: May 16:24 - CONCLUSION: 1. Postsurgical changes as above. 2. Osteophytic spur to the left at C6-C7 flattening the thecal sac and cord with mild stenosis. CT scan is recommended for further evaluation if clinically indicated. Abhijit Barber MD Brain MRI 05/13/161326 Signed Impressions: Service Date/Time: May 16:24 - CONCLUSION: 1. No evidence of acute intracranial pathology. No masses are identified. Abhijit aBrber MD Head CT 05/13/161134 Signed Impressions: Service Date/Time: May 12:46 - CONCLUSION: 1. No acute intracranial abnormality. Antione Dowell MD Chest X-Ray 05/13/[id number] Signed Impressions: Service Date/Time: May 11:56 - CONCLUSION: 1. Mild, chronic interstitial changes. No acute abnormality. Antione Dowell MD Procedures No procedures performed. Other Results Laboratory Tests Test 05/13/16 05/13/16 05/14/16 12:10 18:05 09:04 Prothrombin Time 13.3 SEC Prothromb Time International 1.2 RATIO Ratio Activated Partial 26.6 SEC Thromboplast Time Magnesium Level 1.8 MG/DL Total Bilirubin 1.8 MG/DL Aspartate Amino Transf 30 U/L (AST/SGOT) Alanine Aminotransferase 19 U/L (ALT/SGPT) Alkaline Phosphatase 371 U/L Total Protein 6.6 GM/DL Albumin 2.8 GM/DL Hemoglobin A1c 11.5 % Thyroid Stimulating Hormone 1.150 uIU/ML 3rd Gen Urine Color YELLOW Urine Turbidity HAZY Urine pH 6.0 Urine Specific [place] 1.031 Urine Protein NEG mg/dL Urine Glucose (UA) 1000 mg/dL Urine Ketones NEG mg/dL Urine Occult Blood NEG Urine Nitrite NEG Urine Bilirubin NEG Urine Urobilinogen LESS THAN 2.0 MG/DL Urine Leukocyte Esterase LARGE Urine RBC 11 /hpf Urine WBC 57 /hpf Urine Squamous Epithelial 2 /hpf Cells Urine Bacteria RARE /hpf Microscopic Urinalysis Comment CULTURE INDICATED White Blood Count 12.5 TH/MM3 Red Blood Count 5.00 MIL/MM3 Hemoglobin 15.5 GM/DL Hematocrit 44.6 % Mean Corpuscular Volume 89.1 FL Mean Corpuscular Hemoglobin 31.0 PG Mean Corpuscular Hemoglobin 34.7 % Concent Red Cell Distribution Width 14.7 % Platelet Count 154 TH/MM3 Mean Platelet Volume 9.1 FL Neutrophils (%) (Auto) 61.8 % Lymphocytes (%) (Auto) 25.9 % Monocytes (%) (Auto) 10.1 % Eosinophils (%) (Auto) 1.8 % Basophils (%) (Auto) 0.4 % Neutrophils # (Auto) 7.7 TH/MM3 Lymphocytes # (Auto) 3.2 TH/MM3 Monocytes # (Auto) 1.3 TH/MM3 Eosinophils # (Auto) 0.2 TH/MM3 Basophils # (Auto) 0.0 TH/MM3 CBC Comment DIFF FINAL Differential Comment Sodium Level 137 MEQ/L Potassium Level 3.9 MEQ/L Chloride Level 103 MEQ/L Carbon Dioxide Level 21.5 MEQ/L Anion Gap 13 MEQ/L Blood Urea Nitrogen 7 MG/DL Creatinine 1.02 MG/DL Estimat Glomerular Filtration 56 ML/MIN Rate Random Glucose 203 MG/DL Calcium Level 9.3 MG/DL Ammonia 50 MCMOL/L Objective Remarks GENERAL: Obesity and Mild to moderate distress. SKIN: Red Rash to right hand HEAD: Atraumatic. Normocephalic. EYES: Pupils equal round and reactive. ENT: Nose without bleeding, purulent drainage or septal hematoma. Airway patent. NECK: Trachea midline. No JVD CARDIOVASCULAR: Regular rate and rhythm without murmurs,Tachycardic. RESPIRATORY: Clear to auscultation. Breath sounds equal bilaterally. No wheezes , rales, or rhonchi. GASTROINTESTINAL: Abdomen soft, tender on palpation generalized. MUSCULOSKELETAL: Extremities without clubbing, cyanosis, or edema. No joint tenderness, effusion, or edema noted. No calf tenderness. NEUROLOGICAL: Awake and alert. Motor and sensory grossly within normal limits. Normal speech. Medications and IVs Current Medications Medications (Trade) Dose Ordered Sig/David Route Start Time Stop Time Status Last Admin (NS Flush) 2 ml UNSCH PRN FLUSH 05/13/16 19:00 (NS Flush) 2 ml BID FLUSH 05/13/16 21:00 05/14/16 08:22 (Tylenol) 650 mg Q4H PRN PO 05/13/16 19:00 (Zofran Inj) 4 mg Q6H PRN IVP 05/13/16 19:00 05/14/16 10:51 (Milk Of Magnesia Liq) 30 ml Q12H PRN PO 05/13/16 19:00 (Narcan Inj) 0.4 mg UNSCH PRN IV 05/13/16 19:00 (D50w (Vial) Inj) 25 ml UNSCH PRN IV PUSH 05/13/16 19:00 (Glucagon Inj) 1 mg UNSCH PRN OTHER 05/13/16 19:00 Lactulose 30 ml 30 ml TID PO 05/14/16 00:00 05/14/16 13:09 (Cipro 400 Mg Premix) 200 ml @ 200 mls/hr Q12H IV 05/13/16 23:45 05/14/16 12:16 (Buspar) 20 mg BID PO 05/14/16 09:00 05/14/16 10:32 (Lasix) 20 mg DAILY PO 05/14/16 09:00 05/14/16 08:22 (Neurontin) 100 mg TID PO 05/14/16 09:00 05/14/16 13:09 (Proamatine) 5 mg BID PO 05/14/16 09:00 05/14/16 10:33 (Protonix) 20 mg DAILY PO 05/14/16 09:00 05/14/16 08:22 (Pravachol) 20 mg HS PO 05/14/16 21:00 (Aldactone) 50 mg DAILY PO 05/14/16 09:00 05/14/16 10:32 (Xifaxan) 550 mg BID PO 05/14/16 09:00 05/14/16 10:32 (Zanaflex) 4 mg TID PO 05/14/16 09:00 05/14/16 10:32 (Msir) 15 mg Q4H PRN PO 05/14/16 11:00 05/14/16 13:10 A/P Assessment and Plan 1. Hypertension controlled. 2. DM II continue sliding scale. follow Hemoglobin A1C. 3. UTI on Cipro every 12 hours. switch to Ceftriaxone rule out probable SBP. 4. Hepatic Encephalopathy/Cirrhosis/Hyperammonemia stable no signs of acute Hepatic Encephalopathy. 5. Generalized weakness probable secondary to #4 MRI of Cervical spine showed osteophytic spur to the left C6-C7 flattening the thecal sac and cord mild stenosis, Mild stenosis at the level of L2-L3 without acute disc protrusion. Mild bilateral foraminal narrowing at L5-S1. follow EEG, TSH, PT. has Intention tremors may need Neurology specialist consult. 6. Fever/Sepsis asked for blood cultures. switch to Ceftriaxone, following Urine culture negative so far. DVT prophylaxis: SCDs Discharge Planning Not yet ready for discharge. Maurice Real MD May 14, 2016 13:28
--- NOTE | 2016-05-14 13:40 | MG ---
cc: KAELA FORD M.D. Lab No: [id number] Date: 05/14/2016 Age: Sex: F TECHNIQUE 17-channel EEG. DESCRIPTION The background rhythm is a symmetrical alpha rhythm, frequency 8-9 Hz, amplitude 20 microvolts. There are no lateralizing features seen. There are no epileptiform discharges. There is occasional muscle artifact identified. During drowsiness there is mild slowing in the theta range. Hyperventilation was not done but photic stimulation was done in a stepwise fashion with a normal driving response. INTERPRETATION Normal EEG. MD ADARSH Arvizu/PORFIRIO /1:26 PM /1:30 PM
[2016-05-14] MEDS: cefTRIAXone INJ 1,000 MG in SODIUM CHLORIDE 0.9% INJ 100 ML IV SCH (21:27)
[2016-05-14] MEDS: PRAVASTATIN SOD 20 MG TAB PO SCH (21:27)
[2016-05-14] MEDS: IBUPROFEN 600 MG TAB PO PRN (21:27)
--- NOTE | 2016-05-14 23:34 | EKG ---
Date Performed: 05/13/2016 Time Performed: 13:49:44 PTAGE: 56 years EKG: SINUS BRADYCARDIA BORDERLINE ECG PREVIOUS TRACING : 04/09/2015 09.54 DOCTOR: Preet Louis Interpretating Date/Time 05/14/2016 23:32:16
[2016-05-15] VITALS (9 sets, daily range): BP systolic 85–141; BP diastolic 43–89; PULSE 71–130; RESP 15–20; TEMP 97.5–98.7; O2SAT 94–99
[2016-05-15 01:50] LABS: AUTOMATED NEUTROPHIL # 7.8 TH/MM3 (1.8-7.7); BASOPHIL # 0.1 TH/MM3 (0-0.2); BASOPHIL % 0.6 % (0.0-2.0); EOSINOPHIL # 0.3 TH/MM3 (0-0.4); EOSINOPHIL % 1.8 % (0.0-4.0); HEMATOCRIT 43.8 % (35.0-46.0); LYMPH % 32.5 % (9.0-44.0); MEAN CELL VOLUME 91.2 FL (80.0-100.0); MEAN CORPUSCULAR HEMOGLOBIN 31.4 PG (27.0-34.0); MEAN CORPUSCULAR HGB CONC 34.4 % (32.0-36.0); MONO % 14.7 % (0.0-8.0); NEUT % 50.4 % (16.0-70.0); PLATELET COUNT 172 TH/MM3 (150-450); RED BLOOD COUNT 4.81 MIL/MM3 (4.00-5.30); WHITE BLOOD COUNT 15.5 TH/MM3 (4.0-11.0)
[2016-05-15 01:55] LABS: HEMO FLAGS AUTO DIFF
[2016-05-15 02:13] LABS: BICARBONATE 22.6 MEQ/L (21.0-32.0); MAGNESIUM 1.6 MG/DL (1.5-2.5); POTASSIUM 3.7 MEQ/L (3.5-5.1)
[2016-05-15 02:36] LABS: BANDS 1 % (0-6); BASOPHILS 4 % (0-2); EOSINOPHILS 1 % (0-4); METAMYELOCYTES 1 % (0-1); NEUTROPHIL # MANUAL DIFF 9.1 TH/MM3 (1.8-7.7); PLATELET ESTIMATE SMEAR NORMAL (NORMAL); PLATELET MORPHOLOGY NORMAL (NORMAL); POLYS (SEG NEUTROPHILS) 57 % (16-70); SCAN/DIFF FINAL DIFF MANUAL; WBC DIFF SAMPLE 100
[2016-05-15] MEDS: INSULIN ASPART SUPPLEMENTAL SCALE SQ SCH ×4 (05:57→22:47)
[2016-05-15] MEDS: PANTOPRAZOLE SOD 20 MG DELAYED RELEASE TAB PO SCH (07:57)
[2016-05-15] MEDS: FUROSEMIDE 20 MG TAB PO SCH (07:57)
[2016-05-15] MEDS: GABAPENTIN 100 MG CAP PO SCH ×3 (07:57→15:39)
[2016-05-15] MEDS: RIFAXIMIN 550 MG TAB PO SCH ×2 (07:57→20:31)
[2016-05-15] MEDS: SPIRONOLACTONE 50 MG TAB PO SCH (07:57)
[2016-05-15] MEDS: MIDODRINE 5 MG TAB PO SCH ×2 (07:58→20:31)
[2016-05-15] MEDS: LACTULOSE SYRUP 20 GM/30 ML CUP PO SCH ×3 (07:58→15:39)
[2016-05-15] MEDS: busPIRone HCL 10 MG TAB PO SCH ×2 (07:58→20:30)
[2016-05-15] MEDS: SODIUM CHLORIDE 0.9% FLUSH 5 ML FLUSH FLUSH SCH ×2 (08:07→20:30)
[2016-05-15] MEDS ORDERED: PNEUMOCOCCAL POLYVALENT INJ 25 MCG/0.5 ML SYR IM ONE (09:00)
[2016-05-15] MEDS ORDERED: INFLUENZA VIRUS VACCINE (QUADRIVALENT) 0.5 ML SYR IM ONE (10:00)
--- NOTE | 2016-05-15 15:11 | HHI.PR ---
Subjective Remarks This is a pleasant 56 y/o Female who came to ER with weakness, confusion, Numbness RUE, Hepatic encephalopathy, Hyperglycemia, has Hypertension, DM II, Cirrhosis, has Bilateral lower extremity numbness and dizziness, for one week, had blurred vision, recent status post fall she is Wheelchair bound at home, status post spinal surgery C6-C7, TIPS procedure, Tobacco dependence. patient seen in the presence of nurse Miss Marin, stable also her in the room, she has chronic Recurrent syncope as per her already had complete cardiac workup, at this time with Intention Tremor bilateral. continue antibiotics for UTI, blood cultures and Urine culture negative, as per nurse Patricia she had another episode of syncope asked for Neurology specialist and Echocardiogram will follow Telemetry monitoring. Objective Vital Signs Date Time Temp Pulse Resp B/P Pulse Ox O2 Delivery O2 Flow Rate FiO2 05/15/16 13:43 83 15 85/48 96 05/15/16 12:00 97.5 115 17 115/53 94 05/15/16 08:00 97.8 130 17 141/73 96 05/15/16 00:00 98.7 120 20 140/89 96 05/14/16 20:00 99.3 94 20 102/48 96 05/14/16 16:51 99.7 05/14/16 16:00 100.4 123 18 134/92 96 I/O 05/14/16 05/14/16 05/14/16 05/15/16 05/15/16 05/15/16 07:00 15:00 23:00 07:00 15:00 23:00 Intake Total 695 ml 120 ml 940 ml 1796 ml Output Total 300 ml Balance 395 ml 120 ml 940 ml 1796 ml Intake Oral 320 ml 120 ml 240 ml IV Total 375 ml 700 ml 1796 ml Output Emesis 300 ml # Voids 1 2 Result Diagram: 05/15/16 0125 05/15/16 0125 Imaging Last Impressions Thoracic Spine MRI 05/13/167 Signed Impressions: Service Date/Time: May 16:24 - CONCLUSION: Normal examination. Kevin Larry MD Lumbar Spine MRI 05/13/167 Signed Impressions: Service Date/Time: May 16:24 - CONCLUSION: 1. Mild stenosis at L2-L3 without acute disc protrusion. 2. Mild bilateral foraminal narrowing at L5-S1 Abhijit Barber MD Cervical Spine MRI 05/13/161326 Signed Impressions: Service Date/Time: May 16:24 - CONCLUSION: 1. Postsurgical changes as above. 2. Osteophytic spur to the left at C6-C7 flattening the thecal sac and cord with mild stenosis. CT scan is recommended for further evaluation if clinically indicated. Abhijit Barber MD Brain MRI 05/13/161326 Signed Impressions: Service Date/Time: May 16:24 - CONCLUSION: 1. No evidence of acute intracranial pathology. No masses are identified. Abhijit Barber MD Head CT 05/13/161134 Signed Impressions: Service Date/Time: May 12:46 - CONCLUSION: 1. No acute intracranial abnormality. Antione Dowell MD Chest X-Ray 05/13/161134 Signed Impressions: Service Date/Time: May 11:56 - CONCLUSION: 1. Mild, chronic interstitial changes. No acute abnormality. Antione Dowell MD Procedures No procedures performed. Other Results Laboratory Tests Test 05/13/16 05/13/16 05/14/16 05/15/16 12:10 18:05 09:04 01:25 Prothrombin Time 13.3 SEC Prothromb Time International 1.2 RATIO Ratio Activated Partial 26.6 SEC Thromboplast Time Total Bilirubin 1.8 MG/DL Aspartate Amino Transf 30 U/L (AST/SGOT) Alanine Aminotransferase 19 U/L (ALT/SGPT) Alkaline Phosphatase 371 U/L Total Protein 6.6 GM/DL Albumin 2.8 GM/DL Hemoglobin A1c 11.5 % Thyroid Stimulating Hormone 1.150 uIU/ML 3rd Gen Urine Color YELLOW Urine Turbidity HAZY Urine pH 6.0 Urine Specific [place] 1.031 Urine Protein NEG mg/dL Urine Glucose (UA) 1000 mg/dL Urine Ketones NEG mg/dL Urine Occult Blood NEG Urine Nitrite NEG Urine Bilirubin NEG Urine Urobilinogen LESS THAN 2.0 MG/DL Urine Leukocyte Esterase LARGE Urine RBC 11 /hpf Urine WBC 57 /hpf Urine Squamous Epithelial 2 /hpf Cells Urine Bacteria RARE /hpf Microscopic Urinalysis Comment CULTURE INDICATED Ammonia 50 MCMOL/L White Blood Count 15.5 TH/MM3 Red Blood Count 4.81 MIL/MM3 Hemoglobin 15.1 GM/DL Hematocrit 43.8 % Mean Corpuscular Volume 91.2 FL Mean Corpuscular Hemoglobin 31.4 PG Mean Corpuscular Hemoglobin 34.4 % Concent Red Cell Distribution Width 15.0 % Platelet Count 172 TH/MM3 Mean Platelet Volume 9.0 FL Neutrophils (%) (Auto) 50.4 % Lymphocytes (%) (Auto) 32.5 % Monocytes (%) (Auto) 14.7 % Eosinophils (%) (Auto) 1.8 % Basophils (%) (Auto) 0.6 % Neutrophils # (Auto) 7.8 TH/MM3 Lymphocytes # (Auto) 5.0 TH/MM3 Monocytes # (Auto) 2.3 TH/MM3 Eosinophils # (Auto) 0.3 TH/MM3 Basophils # (Auto) 0.1 TH/MM3 CBC Comment AUTO DIFF Differential Total Cells 100 Counted Neutrophils % (Manual) 57 % Band Neutrophils % 1 % Lymphocytes % 23 % Monocytes % 13 % Eosinophils % 1 % Basophils % 4 % Neutrophils # (Manual) 9.1 TH/MM3 Metamyelocytes 1 % Differential Comment FINAL DIFF MANUAL Atypical Lymphocytes % Platelet Estimate NORMAL Platelet Morphology Comment NORMAL Red Cell Morphology Comment NORMAL Sodium Level 141 MEQ/L Potassium Level 3.7 MEQ/L Chloride Level 107 MEQ/L Carbon Dioxide Level 22.6 MEQ/L Anion Gap 11 MEQ/L Blood Urea Nitrogen 7 MG/DL Creatinine 1.13 MG/DL Estimat Glomerular Filtration 50 ML/MIN Rate Random Glucose 197 MG/DL Calcium Level 9.7 MG/DL Magnesium Level 1.6 MG/DL Objective Remarks GENERAL: Obesity and Mild to moderate distress. SKIN: Red Rash to right hand HEAD: Atraumatic. Normocephalic. EYES: Pupils equal round and reactive. ENT: Nose without bleeding, purulent drainage or septal hematoma. Airway patent. NECK: Trachea midline. No JVD CARDIOVASCULAR: Regular rate and rhythm without murmurs,Tachycardic. RESPIRATORY: Clear to auscultation. Breath sounds equal bilaterally. No wheezes , rales, or rhonchi. GASTROINTESTINAL: Abdomen soft, tender on palpation generalized. MUSCULOSKELETAL: Extremities without clubbing, cyanosis, or edema. No joint tenderness, effusion, or edema noted. No calf tenderness. NEUROLOGICAL: Awake and alert. Motor and sensory grossly within normal limits. Normal speech. Medications and IVs Current Medications Medications (Trade) Dose Ordered Sig/David Route Start Time Stop Time Status Last Admin (NS Flush) 2 ml UNSCH PRN FLUSH 05/13/16 19:00 (NS Flush) 2 ml BID FLUSH 05/13/16 21:00 05/15/16 08:07 (Tylenol) 650 mg Q4H PRN PO 05/13/16 19:00 (Zofran Inj) 4 mg Q6H PRN IVP 05/13/16 19:00 05/14/16 10:51 (Milk Of Magnesia Liq) 30 ml Q12H PRN PO 05/13/16 19:00 (Narcan Inj) 0.4 mg UNSCH PRN IV 05/13/16 19:00 (D50w (Vial) Inj) 25 ml UNSCH PRN IV PUSH 05/13/16 19:00 (Glucagon Inj) 1 mg UNSCH PRN OTHER 05/13/16 19:00 (Lactulose Liq) 30 ml TID PO 05/14/16 00:00 05/15/16 11:14 (Buspar) 20 mg BID PO 05/14/16 09:00 05/15/16 07:58 (Lasix) 20 mg DAILY PO 05/14/16 09:00 05/15/16 07:57 (Neurontin) 100 mg TID PO 05/14/16 09:00 05/15/16 11:14 (Proamatine) 5 mg BID PO 05/14/16 09:00 05/15/16 07:58 (Protonix) 20 mg DAILY PO 05/14/16 09:00 05/15/16 07:57 (Pravachol) 20 mg HS PO 05/14/16 21:00 05/14/16 21:27 (Aldactone) 50 mg DAILY PO 05/14/16 09:00 05/15/16 07:57 (Xifaxan) 550 mg BID PO 05/14/16 09:00 05/15/16 07:57 (Zanaflex) 4 mg TID PO 05/14/16 09:00 05/15/16 11:14 (Msir) 15 mg Q4H PRN PO 05/14/16 11:00 05/14/16 13:10 Ibuprofen 600 mg 600 mg Q6H PRN PO 05/14/16 19:30 05/14/16 21:27 (Rocephin Inj/NS Inj) 100 ml @ 200 mls/hr Q24H IV 05/14/16 20:00 05/14/16 21:27 A/P Assessment and Plan 1. Hypertension controlled. Had Hypotension given one bolus of NS and continue at 84 Ml per hour. 2. DM II continue sliding scale. Hemoglobin A1C 11.5 Poorly controlled 3. UTI on Cipro every 12 hours. switch to Ceftriaxone rule out probable SBP. 4. Hepatic Encephalopathy/Cirrhosis/Hyperammonemia stable no signs of acute Hepatic Encephalopathy. 5. Generalized weakness probable secondary to #4 MRI of Cervical spine showed osteophytic spur to the left C6-C7 flattening the thecal sac and cord mild stenosis, Mild stenosis at the level of L2-L3 without acute disc protrusion. Mild bilateral foraminal narrowing at L5-S1. follow EEG, TSH, PT. has asked for Neurology specialist consult . 6. Fever/Sepsis asked for blood cultures. switch to Ceftriaxone, following Urine culture negative so far. blood culture negative, no afebrile. 7. Recurrent Syncope asked for Echocardiogram and staffing specialist consult. 8. electrolyte derangement Potassium 3.7 given one dose of 20 meq of Potassium Chloride, Magnesium level 1.6 giving 2 grams of Magnesium Sulfate. DVT prophylaxis: SCDs Discharge Planning Not yet ready for discharge. Maurice Real MD May 15, 2016 15:11
[2016-05-15] MEDS ORDERED: POTASSIUM CHLORIDE 20 MEQ CONTROLLED RELEASE TAB PO ONE (15:15)
[2016-05-15] MEDS ORDERED: SODIUM CHLOR 0.9% 250 ML INJ 250 ML IV ONE (15:15)
[2016-05-15] MEDS: MAGNESIUM SULFATE 1 GM PREMIX 100 ML IV SCH ×2 (15:38→15:51)
[2016-05-15] MEDS: SODIUM CHLOR 0.9% 1000 ML INJ 1,000 ML IV SCH ×2 (15:40→22:48)
--- NOTE | 2016-05-15 19:24 | MB ---
cc: KAELA FORD M.D. DATE OF CONSULTATION: 05/15/2016. REASON FOR CONSULTATION: Tremulousness and weakness. HISTORY OF PRESENT ILLNESS: This is a 56-year-old female who has been having difficulty with confusion and tremulousness over the past several weeks as well as weakness, difficulty ambulating and also had right upper extremity numbness, neck pain and headaches. She has episodes where she suddenly becomes limp, loses consciousness and is very lethargic. PAST MEDICAL HISTORY: 1. History of hypertension. 2. Diabetes. 3. Cirrhosis. 4. Hepatic encephalopathy. 5. Spinal surgery at C6 and C7. 6. D&C. 7. TIPS procedure. 8. 8. section. MEDICATIONS AT HOME: 1. Calcium. 2. Vitamin D3. 3. Midodrine. 4. Chantix. 5. Tizanidine. 6. Spironolactone. 7. Rifaximine. 8. Pravastatin. 9. Omeprazole. 10. Morphine. 11. Lactulose. 12. Gabapentin. 13. Antifungal. 14. Buspirone. ALLERGIES: CONTRAST MEDIA. NEUROLOGIC EXAMINATION: VITAL SIGNS: Blood pressure is 119/66, pulse 113, respirations are 16, temperature 97.70. Higher cortical functions - she is lethargic but oriented. She follows commands. Cranial nerves intact. On motor exam, she is diffusely weak at 4/5 in both upper and lower extremities. She does have tremors which are mainly sustention tremors in the upper extremities with asterixis. Reflexes are 2+ symmetric with bilateral Babinski signs present. LABORATORY DATA: White count is 15,500, hemoglobin 15.1, hematocrit 43.8%, platelet count 172,000. PT 13.3, INR 1.2, APTT 26.6. Sodium is 141, potassium 3.7, chloride 107, carbon dioxide 22.6, the BUN is 7, creatinine 1.13, GFR is 50, glucose 197, hemoglobin A1c 11.5, ammonia level is 50. IMAGING STUDIES: MRI of the brain is within normal limits. MRI cervical spine shows spinal stenosis at C6-C7 with spinal cord involvement. MRI of the lumbar spine shows mild stenosis at L2-3 and mild neural foraminal encroachment at L5-S1 bilaterally. The thoracic spine MRI is normal. IMPRESSION: 1. Tremors probably related to hepatic encephalopathy. She does have asterixis. 2. The patient does have evidence of a cervical myelopathy. RECOMMENDATIONS: 1. Would recommend a neurosurgical consultation regarding the cervical stenosis. 2. Continue lactulose for the hepatic encephalopathy. MD ADARSH Arvizu/JOSHUA /7:09 PM /7:16 PM
[2016-05-15] MEDS: cefTRIAXone INJ 1,000 MG in SODIUM CHLORIDE 0.9% INJ 100 ML IV SCH (20:29)
[2016-05-15] MEDS: PRAVASTATIN SOD 20 MG TAB PO SCH (20:30)
--- NOTE | 2016-05-15 21:48 | PD.CONS ---
History of Present Illness Service Neurosurgery Consult Requested By Neurology-Dr. Alex Chris Reason for Consult Myelopathy, cervical stenosis Primary Care Physician Non-Staff Diagnoses: History of Present Illness 56-year-old female with history of diabetes and hypertension presented to [facility] [place] emergency room on 05-28 due to approximately 3-4 weeks of progressive confusion, lethargy. Her blood sugar initially in the emergency room was 536. She was noted to have large leukocyte esterase on urinalysis, and an ammonia of 58. She complains of approximately 3 weeks of rather severe headaches over the right side of the head extending down to the cervical occipital region. No significant neck pain or stiffness. She has noted problems with blurred vision and diplopia for the past 3 weeks. The patient has a history of anterior cervical fusion in [place] approximately 4 years ago, apparently for myelopathy. She complains of recurrent numbness and some loss of coordination in the hands for the past month or so. She has had some problems with increasing gait difficulty, and fell approximately a week ago. This did not seem to cause any new symptoms for her. She has been mostly using a wheelchair at home to mobilize. Review of Systems Constitutional: COMPLAINS OF: Fever, Chills Endocrine: DENIES: Polydipsia Eyes: COMPLAINS OF: Blurred vision, Diplopia Ears, nose, mouth, throat: COMPLAINS OF: Hearing loss, Throat pain, Ear Pain Respiratory: DENIES: Cough, Shortness of breath Cardiovascular: DENIES: Chest pain, Palpitations Gastrointestinal: COMPLAINS OF: Abdominal pain, DENIES: Constipation, Diarrhea Musculoskeletal: COMPLAINS OF: Muscle aches, DENIES: Back pain, Neck pain Integumentary: DENIES: Rash Hematologic/lymphatic: DENIES: Bruising Neurologic: COMPLAINS OF: Abnormal gait, Headache, Paresthesias, Tremor, Poor Balance, DENIES: Seizures Psychiatric: COMPLAINS OF: Confusion Past Family Social History Allergies: Coded Allergies: Contrast Media (Verified Adverse Reaction, Unknown, 05/13/16) Past Medical History Diabetes Hepatic encephalopathy. Cirrhosis Hypertension Denies cardiac and pulmonary disease Past Surgical History C5-7 ACDF approximately 4 years ago D&C Reported Medications Reported Meds & Active Scripts Active Reported Calcium 600 + D (Calcium Carbonate-Vitamin D) 600-400 Mg-Unit Tab 1 Tab PO DAILY Vitamin D-3 (Cholecalciferol) 1,000 Unit Tab 1,000 Units PO DAILY Midodrine 5 Mg Tab 5 Mg PO BID Chantix (Varenicline) 1 Mg Tab 1 Mg PO BIDPC Tizanidine (Tizanidine HCl) 4 Mg Tab 4 Mg PO TID Spironolactone 50 Mg Tab 50 Mg PO DAILY Xifaxan (Rifaximin) 550 Mg Tab 550 Mg PO BID Pravastatin 20 Mg Tab 20 Mg PO HS Omeprazole 20 Mg Tab 20 Mg PO DAILY Morphine IR (Morphine Sulfate) 15 Mg Tab 15 Mg PO Q4H PRN Lactulose Liq (Lactulose) 10 Gm/15 Ml Soln 15 Ml PO 2-3 TIMES DAILY Gabapentin 100 Mg Cap 100 Mg PO TID Furosemide 20 Mg Tab 20 Mg PO DAILY Anti-Fungal (Clotrimazole (Topical)) 1 % Cre 1 Applic TOP Q8HR Buspirone (Buspirone HCl) 10 Mg Tab 20 Mg PO BID Family History She is adopted Social History N half-pack cigarettes per day.-Trying to quit No alcohol or illicit drug use Physical Exam Vital Signs Vital Signs Date Time Temp Pulse Resp B/P Pulse Ox O2 Delivery O2 Flow Rate FiO2 05/15/16 16:00 97.7 113 16 119/66 95 05/15/16 13:43 83 15 85/48 96 05/15/16 12:00 97.5 115 17 115/53 94 05/15/16 08:00 97.8 130 17 141/73 96 05/15/16 00:00 98.7 120 20 140/89 96 Physical Exam GENERAL: Moderately obese, cooperative patient. SKIN: No rashes, ecchymoses or lesions. HEAD: Mild to moderate tenderness over the right temporoparietal scalp and postauricular region as well as over the cervical occipital junction along the skull base. Lesser left sided scalp tenderness. EYES: Sclerae are clear and nonicteric. No periorbital edema or ecchymosis ENT: No facial fracture or deformity. Poor dentition. No oral lesions. Mild tenderness along the right mandible. NECK: Supple, nontender, no meningeal signs. CARDIOVASCULAR: Regular rate and rhythm. 2/6 systolic murmur right upper sternal border RESPIRATORY: Clear to auscultation. Breath sounds equal bilaterally. No wheezes , rales, or rhonchi. GASTROINTESTINAL: Abdomen soft, non-tender, nondistended. No hepato-splenomegaly , or palpable masses. No guarding. Normal bowel sounds MUSCULOSKELETAL: Extremities without cyanosis, or edema. No joint tenderness, effusion, or edema noted. No calf tenderness. Posterior tibial pulse 2+ bilateral NEUROLOGICAL: Moderate lethargy. Arouses readily to voice. Falls back asleep if not stimulated. Mild to moderate confusion. She knows that she is in the hospital and the month. Has difficulty doing information regarding her past medical history. Speech is somewhat slow without significant dysarthria. Mild difficulty following commands Appears to have diminished judgment and insight No obvious anxiety or depression Pupils 3 mm reactive to 2 mm Mild nystagmus Visual vasquez to confrontation and extraocular movements intact Mild decreased sensation light touch over the right face Tongue protrudes slightly to the left Palate elevate symmetric Symmetric shoulder shrug Sensation intact to light touch throughout the upper and lower extremities except for complain of minimal paresthesias in the hands Strength is mildly and diffusely decreased in major flexion and extension groups in the upper and lower extremities. She has mild weakness in hand intrinsic musculature. Positive upper extremity tremor with asterixis. Mild upper extremity dysmetria. Moderate difficulty with fine motor movements in the hands Destinee's response moderate positive left, absent right Plantar response mildly extensor left, neutral right Laboratory Laboratory Tests Test 05/15/16 01:25 White Blood Count 15.5 Red Blood Count 4.81 Hemoglobin 15.1 Hematocrit 43.8 Mean Corpuscular Volume 91.2 Mean Corpuscular Hemoglobin 31.4 Mean Corpuscular Hemoglobin 34.4 Concent Red Cell Distribution Width 15.0 Platelet Count 172 Mean Platelet Volume 9.0 Neutrophils (%) (Auto) 50.4 Lymphocytes (%) (Auto) 32.5 Monocytes (%) (Auto) 14.7 Eosinophils (%) (Auto) 1.8 Basophils (%) (Auto) 0.6 Neutrophils # (Auto) 7.8 Lymphocytes # (Auto) 5.0 Monocytes # (Auto) 2.3 Eosinophils # (Auto) 0.3 Basophils # (Auto) 0.1 CBC Comment AUTO DIFF Differential Total Cells 100 Counted Neutrophils % (Manual) 57 Band Neutrophils % 1 Lymphocytes % 23 Monocytes % 13 Eosinophils % 1 Basophils % 4 Neutrophils # (Manual) 9.1 Metamyelocytes 1 Differential Comment FINAL DIFF MANUAL Atypical Lymphocytes Platelet Estimate NORMAL Platelet Morphology Comment NORMAL Red Cell Morphology Comment NORMAL Sodium Level 141 Potassium Level 3.7 Chloride Level 107 Carbon Dioxide Level 22.6 Anion Gap 11 Blood Urea Nitrogen 7 Creatinine 1.13 Estimat Glomerular Filtration 50 Rate Random Glucose 197 Calcium Level 9.7 Magnesium Level 1.6 Date/Time Procedure Status Source Growth 05/15/16 01:33 Aerobic Blood Culture Received Blood Peripheral Pending 05/15/16 01:33 Anaerobic Blood Culture Received Blood Peripheral Pending 05/13/16 18:05 Urine Culture - Final Complete Urine Random Urine 50-100,000 CFU/ML MIXED CECILIA... Result Diagram: 05/15/165 05/15/16 0125 Imaging 05/13/2016 MRI cervical, lumbar, thoracic spine and brain images are reviewed by the undersigned. There is a moderate recurrent or residual central to left posterior ossific disc complex at the previous C6 7 fusion site which appears to cause significant left anterior cord compression. No definite abnormal signal intensity within the cervical cord. Agree with other findings as noted below: Thoracic Spine MRI 05/13/161326 Signed Impressions: Service Date/Time: May 16:24 - CONCLUSION: Normal examination. Kevin Larry MD Lumbar Spine MRI 05/13/161326 Signed Impressions: Service Date/Time: May 16:24 - CONCLUSION: 1. Mild stenosis at L2-L3 without acute disc protrusion. 2. Mild bilateral foraminal narrowing at L5-S1 Abhijit Barber MD Cervical Spine MRI 05/13/161326 Signed Impressions: Service Date/Time: May 16:24 - CONCLUSION: 1. Postsurgical changes as above. 2. Osteophytic spur to the left at C6-C7 flattening the thecal sac and cord with mild stenosis. CT scan is recommended for further evaluation if clinically indicated. Abhijit Barber MD Brain MRI 05/13/161326 Signed Impressions: Service Date/Time: May 16:24 - CONCLUSION: 1. No evidence of acute intracranial pathology. No masses are identified. Abhijit Barber MD Head CT 05/13/164 Signed Impressions: Service Date/Time: May 12:46 - CONCLUSION: 1. No acute intracranial abnormality. Antione Dowell MD Chest X-Ray 05/13/16 1138 Signed Impressions: Service Date/Time: May 11:56 - CONCLUSION: 1. Mild, chronic interstitial changes. No acute abnormality. Antione Dowell MD Assessment and Plan Assessment and Plan Impression: 1. Status post C5-7 ACDF apparently for spinal stenosis with myelopathy approximately 4 years ago. The present MRI indicates residual or recurrent moderate left C6 7 posterior osteophytic disc complex with moderate left anterolateral cord compression without definite signal intensity change within the cord. This is likely a chronic finding without definite evidence of acute or recent progressive myelopathy. 2. Diabetes 3. Hepatic encephalopathy Recommendations: Findings were discussed with the patient and her . I advised him that due to the mental status change and other symptoms related to the hepatic encephalopathy, it is difficult to determine the contribution of the cervical stenosis to her gait difficulty. It is suspected that the cervical stenosis is long-standing, and not related to any recent change in her symptoms or deficit. I have advised conservative treatment and observation at the present time, until her medical situation improves. She can be seen for follow-up in 6-8 weeks on an outpatient basis to reevaluate her neurologic function and make further decision regarding any intervention for the cervical stenosis. Jose Sands MD May 15, 2016 21:48
[2016-05-16] VITALS (8 sets, daily range): BP systolic 99–105; BP diastolic 46–56; PULSE 60–77; RESP 17–20; TEMP 96.9–98.4; O2SAT 95–98
[2016-05-16] MEDS: INSULIN ASPART SUPPLEMENTAL SCALE SQ SCH (05:28)
[2016-05-16] MEDS: MIDODRINE 5 MG TAB PO SCH ×2 (07:32→21:04)
[2016-05-16] MEDS: PANTOPRAZOLE SOD 20 MG DELAYED RELEASE TAB PO SCH (07:32)
[2016-05-16] MEDS: SPIRONOLACTONE 50 MG TAB PO SCH (07:32)
[2016-05-16] MEDS: GABAPENTIN 100 MG CAP PO SCH ×3 (07:32→16:07)
[2016-05-16] MEDS: busPIRone HCL 10 MG TAB PO SCH ×2 (07:32→21:04)
[2016-05-16] MEDS: FUROSEMIDE 20 MG TAB PO SCH (07:33)
[2016-05-16] MEDS: LACTULOSE SYRUP 20 GM/30 ML CUP PO SCH ×3 (07:33→16:07)
[2016-05-16] MEDS: RIFAXIMIN 550 MG TAB PO SCH ×2 (07:33→21:05)
[2016-05-16] MEDS: SODIUM CHLORIDE 0.9% FLUSH 5 ML FLUSH FLUSH SCH ×2 (07:36→21:00)
--- NOTE | 2016-05-16 08:37 | HHI.PR ---
Subjective Remarks This is a pleasant 56 y/o Female who came to ER with weakness, confusion, Numbness RUE, Hepatic encephalopathy, Hyperglycemia, has Hypertension, DM II, Cirrhosis, has Bilateral lower extremity numbness and dizziness, Tremors, seen by Neurology specialist and Neurosurgery read full dictation by physicians, no further management at this time, seen in the room her heart rate is improving, clinically improved, seen by clinical appeals specialist recommended Volume depletion as the reason for possible recurrent syncope, do not recommend Echo or carotid Doppler as per patient and wants to go home tomorrow if possible. Objective Vital Signs Date Time Temp Pulse Resp B/P Pulse Ox O2 Delivery O2 Flow Rate FiO2 05/16/16 07:44 95 21 05/16/16 04:00 98.1 77 20 105/55 96 05/16/16 00:00 97.6 71 20 100/52 97 05/15/16 21:30 100/53 05/15/16 20:29 73 05/15/16 20:00 97.7 72 20 87/43 99 05/15/16 20:00 97.7 72 20 87/43 99 05/15/16 18:41 71 05/15/16 16:00 97.7 113 16 119/66 95 05/15/16 13:43 83 15 85/48 96 05/15/16 12:00 97.5 115 17 115/53 94 I/O 05/15/16 05/15/16 05/15/16 05/16/16 05/16/16 05/16/16 07:00 15:00 23:00 07:00 15:00 23:00 Intake Total 940 ml 2036 ml 240 ml 2039 ml Output Total 100 ml Balance 940 ml 1936 ml 240 ml 2039 ml Intake Oral 240 ml 240 ml 240 ml 480 ml IV Total 700 ml 1796 ml 1559 ml Output Urine Total 100 ml # Voids 2 1 2 # Bowel Movements 0 Result Diagram: 05/15/16 0125 05/15/16 0125 Imaging Last Impressions Thoracic Spine MRI 05/13/167 Signed Impressions: Service Date/Time: May 16:24 - CONCLUSION: Normal examination. Kevin Larry MD Lumbar Spine MRI 05/13/167 Signed Impressions: Service Date/Time: May 16:24 - CONCLUSION: 1. Mild stenosis at L2-L3 without acute disc protrusion. 2. Mild bilateral foraminal narrowing at L5-S1 Abhijit Barber MD Cervical Spine MRI 05/13/161326 Signed Impressions: Service Date/Time: May 16:24 - CONCLUSION: 1. Postsurgical changes as above. 2. Osteophytic spur to the left at C6-C7 flattening the thecal sac and cord with mild stenosis. CT scan is recommended for further evaluation if clinically indicated. Abhijit Barber MD Brain MRI 05/13/161326 Signed Impressions: Service Date/Time: May 16:24 - CONCLUSION: 1. No evidence of acute intracranial pathology. No masses are identified. Abhijit Barber MD Head CT 05/13/[id number] Signed Impressions: Service Date/Time: May 12:46 - CONCLUSION: 1. No acute intracranial abnormality. Antione Dowell MD Chest X-Ray 05/13/161134 Signed Impressions: Service Date/Time: May 11:56 - CONCLUSION: 1. Mild, chronic interstitial changes. No acute abnormality. Antione Dowell MD Procedures No procedures performed. Other Results Laboratory Tests Test 05/13/16 05/13/16 05/14/16 05/15/16 12:10 18:05 09:04 01:25 Prothrombin Time 13.3 SEC Prothromb Time International 1.2 RATIO Ratio Activated Partial 26.6 SEC Thromboplast Time Total Bilirubin 1.8 MG/DL Aspartate Amino Transf 30 U/L (AST/SGOT) Alanine Aminotransferase 19 U/L (ALT/SGPT) Alkaline Phosphatase 371 U/L Total Protein 6.6 GM/DL Albumin 2.8 GM/DL Hemoglobin A1c 11.5 % Urine Color YELLOW Urine Turbidity HAZY Urine pH 6.0 Urine Specific Childress 1.031 Urine Protein NEG mg/dL Urine Glucose (UA) 1000 mg/dL Urine Ketones NEG mg/dL Urine Occult Blood NEG Urine Nitrite NEG Urine Bilirubin NEG Urine Urobilinogen LESS THAN 2.0 MG/DL Urine Leukocyte Esterase LARGE Urine RBC 11 /hpf Urine WBC 57 /hpf Urine Squamous Epithelial 2 /hpf Cells Urine Bacteria RARE /hpf Microscopic Urinalysis Comment CULTURE INDICATED Ammonia 50 MCMOL/L White Blood Count 15.5 TH/MM3 Red Blood Count 4.81 MIL/MM3 Hemoglobin 15.1 GM/DL Hematocrit 43.8 % Mean Corpuscular Volume 91.2 FL Mean Corpuscular Hemoglobin 31.4 PG Mean Corpuscular Hemoglobin 34.4 % Concent Red Cell Distribution Width 15.0 % Platelet Count 172 TH/MM3 Mean Platelet Volume 9.0 FL Neutrophils (%) (Auto) 50.4 % Lymphocytes (%) (Auto) 32.5 % Monocytes (%) (Auto) 14.7 % Eosinophils (%) (Auto) 1.8 % Basophils (%) (Auto) 0.6 % Neutrophils # (Auto) 7.8 TH/MM3 Lymphocytes # (Auto) 5.0 TH/MM3 Monocytes # (Auto) 2.3 TH/MM3 Eosinophils # (Auto) 0.3 TH/MM3 Basophils # (Auto) 0.1 TH/MM3 CBC Comment AUTO DIFF Differential Total Cells 100 Counted Neutrophils % (Manual) 57 % Band Neutrophils % 1 % Lymphocytes % 23 % Monocytes % 13 % Eosinophils % 1 % Basophils % 4 % Neutrophils # (Manual) 9.1 TH/MM3 Metamyelocytes 1 % Differential Comment FINAL DIFF MANUAL Atypical Lymphocytes % Platelet Estimate NORMAL Platelet Morphology Comment NORMAL Red Cell Morphology Comment NORMAL Sodium Level 141 MEQ/L Potassium Level 3.7 MEQ/L Chloride Level 107 MEQ/L Carbon Dioxide Level 22.6 MEQ/L Anion Gap 11 MEQ/L Blood Urea Nitrogen 7 MG/DL Creatinine 1.13 MG/DL Estimat Glomerular Filtration 50 ML/MIN Rate Random Glucose 197 MG/DL Calcium Level 9.7 MG/DL Magnesium Level 1.6 MG/DL Vitamin B12 Level 1529 PG/ML Thyroid Stimulating Hormone 1.190 uIU/ML 3rd Gen Objective Remarks GENERAL: Obesity, No distress. SKIN: Red Rash to right hand HEAD: Atraumatic. Normocephalic. EYES: Pupils equal round and reactive. ENT: Nose without bleeding, purulent drainage or septal hematoma. Airway patent. NECK: Trachea midline. No JVD CARDIOVASCULAR: Regular rate and rhythm without murmurs. RESPIRATORY: Clear to auscultation. Breath sounds equal bilaterally. No wheezes , rales, or rhonchi. GASTROINTESTINAL: Abdomen soft, tender on palpation generalized. MUSCULOSKELETAL: Extremities without clubbing, cyanosis, or edema. No joint tenderness, effusion, or edema noted. No calf tenderness. NEUROLOGICAL: Awake and alert. Motor and sensory grossly within normal limits. Normal speech. Medications and IVs Current Medications Medications (Trade) Dose Ordered Sig/David Route Start Time Stop Time Status Last Admin (NS Flush) 2 ml UNSCH PRN FLUSH 05/13/16 19:00 (NS Flush) 2 ml BID FLUSH 05/13/16 21:00 05/16/16 07:36 (Tylenol) 650 mg Q4H PRN PO 05/13/16 19:00 (Zofran Inj) 4 mg Q6H PRN IVP 05/13/16 19:00 05/14/16 10:51 (Milk Of Magnesia Liq) 30 ml Q12H PRN PO 05/13/16 19:00 (Narcan Inj) 0.4 mg UNSCH PRN IV 05/13/16 19:00 (D50w (Vial) Inj) 25 ml UNSCH PRN IV PUSH 05/13/16 19:00 (Glucagon Inj) 1 mg UNSCH PRN OTHER 05/13/16 19:00 (Lactulose Liq) 30 ml TID PO 05/14/16 00:00 05/16/16 07:33 (Buspar) 20 mg BID PO 05/14/16 09:00 05/16/16 07:32 (Lasix) 20 mg DAILY PO 05/14/16 09:00 05/16/16 07:33 (Neurontin) 100 mg TID PO 05/14/16 09:00 05/16/16 07:32 (Proamatine) 5 mg BID PO 05/14/16 09:00 05/16/16 07:32 (Protonix) 20 mg DAILY PO 05/14/16 09:00 05/16/16 07:32 (Pravachol) 20 mg HS PO 05/14/16 21:00 05/15/16 20:30 (Aldactone) 50 mg DAILY PO 05/14/16 09:00 05/16/16 07:32 (Xifaxan) 550 mg BID PO 05/14/16 09:00 05/16/16 07:33 (Zanaflex) 4 mg TID PO 05/14/16 09:00 05/16/16 07:32 (Msir) 15 mg Q4H PRN PO 05/14/16 11:00 05/14/16 13:10 Ibuprofen 600 mg 600 mg Q6H PRN PO 05/14/16 19:30 05/14/16 21:27 Ceftriaxone Sodium 1000 mg/ Sodium Chloride 100 ml @ 200 mls/hr Q24H IV 05/14/16 20:00 05/15/16 20:29 (NS 1000 ml Inj) 1,000 ml @ 84 mls/hr [id number] IV 05/15/16 15:15 05/15/16 22:48 A/P Assessment and Plan 1. Hypertension controlled. Had Hypotension given one bolus of NS and continue at 84 Ml per hour. 2. DM II continue sliding scale. Hemoglobin A1C 11.5 Poorly controlled 3. UTI on Cipro every 12 hours. switch to Ceftriaxone rule out probable SBP. afebrile 4. Hepatic Encephalopathy/Cirrhosis/Hyperammonemia stable no signs of acute Hepatic Encephalopathy. 5. Generalized weakness probable secondary to #4 MRI of Cervical spine showed osteophytic spur to the left C6-C7 flattening the thecal sac and cord mild stenosis, Mild stenosis at the level of L2-L3 without acute disc protrusion. Mild bilateral foraminal narrowing at L5-S1. follow EEG, TSH, PT. as per Neurosurgery specialist will follow as outpatient no further management at this time. 6. Fever/Sepsis asked for blood cultures. switch to Ceftriaxone, following Urine culture negative so far. blood culture negative, no afebrile. 7. Recurrent Syncope asked for Echocardiogram and clinical appeals specialist consult. 8. electrolyte derangement replaced. DVT prophylaxis: SCDs Discharge Planning Expected by tomorrow Maurice Real MD May 16, 2016 08:37 Discharge Planning Not yet ready for discharge. Maurice Real MD May 16, 2016 08:37
[2016-05-16] MEDS: IBUPROFEN 600 MG TAB PO PRN (10:35)
[2016-05-16] MEDS: SODIUM CHLOR 0.9% 1000 ML INJ 1,000 ML IV SCH (11:42)
--- NOTE | 2016-05-16 11:42 | HHI.PR ---
Review/Management Diagnosis Hepatic encephalopathy with tremors cervical spondylosis Diagnosis/Plan: Subjective Subjective Comments No acute events reported Tremors without change Dr Cazares note appreciated Active Medications Current Medications Medications (Trade) Dose Ordered Sig/David Route Start Time Stop Time Status Last Admin (NS Flush) 2 ml UNSCH PRN FLUSH 05/13/16 19:00 (NS Flush) 2 ml BID FLUSH 05/13/16 21:00 05/16/16 07:36 (Tylenol) 650 mg Q4H PRN PO 05/13/16 19:00 (Zofran Inj) 4 mg Q6H PRN IVP 05/13/16 19:00 05/14/16 10:51 (Milk Of Magnesia Liq) 30 ml Q12H PRN PO 05/13/16 19:00 (Narcan Inj) 0.4 mg UNSCH PRN IV 05/13/16 19:00 (D50w (Vial) Inj) 25 ml UNSCH PRN IV PUSH 05/13/16 19:00 (Glucagon Inj) 1 mg UNSCH PRN OTHER 05/13/16 19:00 (Lactulose Liq) 30 ml TID PO 05/14/16 00:00 05/16/16 07:33 (Buspar) 20 mg BID PO 05/14/16 09:00 05/16/16 07:32 (Lasix) 20 mg DAILY PO 05/14/16 09:00 05/16/16 07:33 (Neurontin) 100 mg TID PO 05/14/16 09:00 05/16/16 07:32 (Proamatine) 5 mg BID PO 05/14/16 09:00 05/16/16 07:32 (Protonix) 20 mg DAILY PO 05/14/16 09:00 05/16/16 07:32 (Pravachol) 20 mg HS PO 05/14/16 21:00 05/15/16 20:30 (Aldactone) 50 mg DAILY PO 05/14/16 09:00 05/16/16 07:32 (Xifaxan) 550 mg BID PO 05/14/16 09:00 05/16/16 07:33 (Zanaflex) 4 mg TID PO 05/14/16 09:00 05/16/16 07:32 (Msir) 15 mg Q4H PRN PO 05/14/16 11:00 05/14/16 13:10 Ibuprofen 600 mg 600 mg Q6H PRN PO 05/14/16 19:30 05/16/16 10:35 Ceftriaxone Sodium 1000 mg/ Sodium Chloride 100 ml @ 200 mls/hr Q24H IV 05/14/16 20:00 05/15/16 20:29 (NS 1000 ml Inj) 1,000 ml @ 84 mls/hr [id number] IV 05/15/16 15:15 05/15/16 22:48 Allergies Allergies Coded Allergies Contrast Media (Verified Adverse Reaction, Unknown, 05/13/16) Exam I&O / VS 05/15/16 05/15/16 05/16/16 15:00 23:00 07:00 Intake Total 2036 ml 240 ml 2039 ml Output Total 100 ml Balance 1936 ml 240 ml 2039 ml Intake Oral 240 ml 240 ml 480 ml IV Total 1796 ml 1559 ml Output Urine Total 100 ml # Voids 1 2 # Bowel Movements 0 Vital Signs Date Time Temp Pulse Resp B/P Pulse Ox O2 Delivery O2 Flow Rate FiO2 05/16/16 08:00 97.7 73 17 99/50 98 05/16/16 07:44 95 21 05/16/16 04:00 98.1 77 20 105/55 96 05/16/16 00:00 97.6 71 20 100/52 97 05/15/16 21:30 100/53 05/15/16 20:29 73 05/15/16 20:00 97.7 72 20 87/43 99 05/15/16 20:00 97.7 72 20 87/43 99 05/15/16 18:41 71 05/15/16 16:00 97.7 113 16 119/66 95 05/15/16 13:43 83 15 85/48 96 05/15/16 12:00 97.5 115 17 115/53 94 Respiratory: Lungs CTA, Non-labored respirations, BS equal Cardiology: Normal rate, Regular Rhythm Musculoskeletal: ROM Exam Comments alert oriented, speech normal cn intact motor--generalized weakness with bilateral sustention tremors Objective Micro and Labs Date/Time Procedure Status Source Growth 05/15/16 01:33 Aerobic Blood Culture - Preliminary Resulted Blood Peripheral NO GROWTH IN 1 DAY 05/15/16 01:33 Anaerobic Blood Culture - Preliminary Resulted Blood Peripheral NO GROWTH IN 1 DAY 05/13/16 18:05 Urine Culture - Final Complete Urine Random Urine 50-100,000 CFU/ML MIXED CECILIA... Alex Chris PhD May 16, 2016 11:42
[2016-05-16] MEDS: INSULIN NovoLIN REGULAR SUPPLEMENTAL SCALE SQ SCH ×3 (11:43→21:00)
--- NOTE | 2016-05-16 14:15 | MB ---
cc: AMEYA SAMUELS M.D. DATE OF CONSULTATION: 05/16/2016 HISTORY OF PRESENT ILLNESS: Nicki is a very pleasant 36-year lady who presented with a chief complaint of numbness and tingling in her fingers, right arm and leg. Consult was obtained for near syncope and syncope. The patient states this occurs when she stands up and occurred as recently as yesterday. She otherwise denies any chest pain, fever, chills, cough, GI or bleeding, paroxysmal nocturnal dyspnea, orthopnea. PAST MEDICAL HISTORY: The past medical history is per the history of present illness. 1. She has a history of cirrhosis of the liver status post TIPS procedure. 2. History of bipolar disorder. 3. Generalized anxiety disorder. 4. Hyperlipidemia. 5. Stage IV cirrhosis. 6. Gastroesophageal reflux disease (GERD). 7. Hepatitis. 8. Hypertension. 9. Status post plate and screws in her cervical spine. 10. Exploratory laparotomy. SOCIAL HISTORY: Smokes half-pack of cigarettes a day. Denies tobacco or alcohol use. ALLERGIES: CONTRAST MEDIA. MEDICATIONS PRIOR TO ADMISSION: 1. Buspirone. 2. Zofran. 3. . 4. Furosemide 20 twice a day. 5. Pravastatin 20 daily. 6. Omeprazole 20 daily. 7. Morphine. 8. . 9. Spironolactone 50 every other day. 10. Spironolactone 100 every other day. 12. BuSpar. 13. Pravastatin. 14. Zanaflex. 15. Gabapentin. 16. Enulose. 17. Metoprolol 50 twice a day. CURRENT MEDICATIONS IN THE HOSPITAL: 1. Pravastatin 20 at bedtime. 2. Ceftriaxone PRN. 3. Ibuprofen. 4. Buspirone 20 twice a day. 5. Lasix 20 daily. 6. Gabapentin 100 three times a day. 7. Proamatine 5 twice a day. 8. Pantoprazole 20 daily. 9. Spironolactone 50 daily. 10. Rifaximine 550 twice a day. 11. Zanaflex. 12. Lactulose 30 three times a day. PHYSICAL EXAMINATION: VITAL SIGNS: Blood pressure 103/55, pulse 75, respiratory rate 17, temperature 98.3, saturations 98% on room air. GENERAL: She is alert and oriented times three and in no acute distress. NECK: The neck is supple. No jugular venous distention. No bruits. CARDIOVASCULAR EXAM: S1 and S2. No murmurs, rubs or gallops. LUNGS: Clear to auscultation bilaterally. ABDOMEN: The abdomen is soft, nontender and nondistended with positive bowel sounds. EXTREMITIES: No lower extremity edema. LABORATORY DATA: White count max was 15.5, hemoglobin max 15.5, hematocrit 44.6, platelet count as low as 144,000. Sodium 141, potassium 3.7, chloride 107, bicarb 22.1, BUN 7, creatinine 1.13, GFR 50, glucose 197, hemoglobin A1c 11.5. Ammonia is 50. TSH 1.190. INR 1.2. IMAGING STUDIES: She had a head CT on 05/13/2016 which showed no acute intracranial abnormality. Chest x-ray 05/13/2016 showed mild chronic interstitial changes. No acute abnormality. Thoracic spine MRI 05/13/2016 was a normal examination. Lumbar spine MRI 05/13/2016: Mild stenosis at L2-L3 without acute disc protrusion, mild bilateral foraminal narrowing at L5-S1. Cervical spine MRI on 05/13/16 showed postsurgical changes, osteophytic spur to the left at C6-7, flattening of the thecal sac and cord with mild stenosis. CT scan is recommended for further evaluation if clinically indicated. A brain MRI on 05/13/16 shows no evidence of acute intracranial pathology and no masses are identified. EKGS: EKG done 05/13/16 shows sinus bradycardia at 58 beats per minute, corrected Q-T intervals ___51 milliseconds. DIAGNOSES: She has the following diagnoses: 1. Syncope, which is positional. 2. Spinal nerve compression at C6-7 on the left. 3. Cirrhosis of the liver. 4. Hepatic encephalopathy. 5. Elevated white count. 6. Polycythemia. 7. Thrombocytopenia. 8. Diabetes mellitus. 9. Hypomagnesemia. 10. Hypoalbuminemia. 11. Hyperglycemia. 12. Hyperbilirubinemia. 13. Tobacco use. DISCUSSION: At this point in time, I suspect that her syncope is probably related to intravascular volume depletion from low oncotic pressure and self-diuresis from severe hyperglycemia and uncontrolled diabetes mellitus as well as hypotension. The ability to correct the albumin is going to be limited by her liver failure. Blood sugars will have to be optimally treated and could try PRN normal saline. I do think it is medically necessary to do a 2-D echocardiogram and carotid ultrasound to rule out carotid artery disease and/or cardiac etiology to her symptoms. Also recommend telemetry monitoring and smoking cessation. MD HEYDI Gonzalez/JOSHUA /12:34 PM /1:58 PM
[2016-05-16] MEDS: PRAVASTATIN SOD 20 MG TAB PO SCH (21:04)
[2016-05-16] MEDS: cefTRIAXone INJ 1,000 MG in SODIUM CHLORIDE 0.9% INJ 100 ML IV SCH (21:05)
--- NOTE | 2016-05-16 21:32 | RADRPT ---
EXAM DATE/TIME: 05/16/2016 19:42 [facility] COMPARISON: No previous studies available for comparison. INDICATIONS : Syncope. MEDICAL HISTORY : Hypercholesterolemia. Gastroesophageal reflux disease. Hypertension. Hearing loss. Encephalopathy. Mi graines. Gallbladder disease. . Back/Neck pain. Paresthesia. Cirrhosis. Diabetes. Bipolar di sorder. Anxiety. SURGICAL HISTORY : Fusion, cervical. section. Exploratory laparotomy. Dilation and currettage. ENCOUNTER: Initial ACUITY: 1 day PAIN SCORE: 0/10 LOCATION: Bilateral neck PEAK SYSTOLIC VELOCITIES (cm/sec): ICA/CCA RATIO: Right: 0.7 Left: 1.0 ICA: Right: 84 Left: 120 CCA: Right: 114 Left: 120 ECA: Right: 107 Left: 132 VERTEBRAL: Right: 44 antegrade Left: 49 antegrade Elevated flow velocities and ICA/CCA ratios have been found to correlate with increased degrees of vessel stenosis, calculated as percentage of diameter relative to a normal segment of distal ICA/CCA FINDINGS: RIGHT CAROTID: No significant stenosis is visualized. The waveforms are within normal limits. LEFT CAROTID: No significant stenosis is visualized. The waveforms are within normal limits. VERTEBRAL ARTERIES: Antegrade flow is seen in both vertebral arteries. MISCELLANEOUS: None. CONCLUSION: 1. No evidence for hemodynamically significant stenosis. Jorge Luis Severino MD on May 16, 2016 at 21:31 Board Certified Radiologist. This report was verified electronically.
[2016-05-17] MEDS: SODIUM CHLOR 0.9% 1000 ML INJ 1,000 ML IV SCH ×2 (03:00→16:05)
[2016-05-17 03:10] VITALS: BP 115/62; PULSE 69; RESP 18; TEMP 98.3; O2SAT 97
[2016-05-17 08:00] VITALS: BP 124/66; PULSE 60; RESP 17; TEMP 96.5; O2SAT 98
[2016-05-17] MEDS: RIFAXIMIN 550 MG TAB PO SCH ×2 (08:22→19:57)
[2016-05-17] MEDS: LACTULOSE SYRUP 20 GM/30 ML CUP PO SCH ×3 (08:22→17:53)
[2016-05-17] MEDS: MIDODRINE 5 MG TAB PO SCH ×2 (08:22→19:57)
[2016-05-17] MEDS: FUROSEMIDE 20 MG TAB PO SCH (08:23)
[2016-05-17] MEDS: GABAPENTIN 100 MG CAP PO SCH ×3 (08:23→17:53)
[2016-05-17] MEDS: busPIRone HCL 10 MG TAB PO SCH ×2 (08:23→19:57)
[2016-05-17] MEDS: SPIRONOLACTONE 50 MG TAB PO SCH (08:23)
[2016-05-17] MEDS: PANTOPRAZOLE SOD 20 MG DELAYED RELEASE TAB PO SCH (08:24)
[2016-05-17] MEDS: SODIUM CHLORIDE 0.9% FLUSH 5 ML FLUSH FLUSH SCH ×2 (08:24→19:56)
--- NOTE | 2016-05-17 09:05 | HHI.PR ---
Subjective Remarks This is a pleasant 56 y/o Female who came to ER with weakness, confusion, Numbness RUE, Hepatic encephalopathy, Hyperglycemia, has Hypertension, DM II, Cirrhosis, has Bilateral lower extremity numbness and dizziness, Tremors, seen by Neurology specialist and Neurosurgery read full dictation by physicians, no further management at this time, seen in the room Patient stable discussed with nurse Miss Jett, the patient had Echocardiogram, rac specialist following, with Diagnosis of Syncopal episode, clinically improved. Objective Vital Signs Date Time Temp Pulse Resp B/P Pulse Ox O2 Delivery O2 Flow Rate FiO2 05/17/16 08:00 96.5 60 17 124/66 98 05/17/16 03:10 98.3 69 18 115/62 97 05/16/16 20:00 98.4 60 20 105/46 97 05/16/16 19:49 62 05/16/16 16:00 96.9 77 17 101/56 97 05/16/16 12:00 98.3 75 17 103/55 98 I/O 05/16/16 05/16/16 05/16/16 05/17/16 05/17/16 05/17/16 07:00 15:00 23:00 07:00 15:00 23:00 Intake Total 2039 ml 1006 ml 1020 ml 0 ml Balance 2039 ml 1006 ml 1020 ml 0 ml Intake Oral 480 ml 480 ml 240 ml 0 ml IV Total 1559 ml 526 ml 780 ml # Voids 2 1 3 2 # Bowel Movements 0 2 1 Result Diagram: 05/15/16 0125 05/15/16 0125 Imaging Last Impressions Carotid Artery Ultrasound 05/16/16 0000 Signed Impressions: Service Date/Time: Monday, May 16, 2016 19:42 - CONCLUSION: 1. No evidence for hemodynamically significant stenosis. Jorge Luis Severino MD Thoracic Spine MRI 05/13/167 Signed Impressions: Service Date/Time: May 16:24 - CONCLUSION: Normal examination. Kevin Larry MD Lumbar Spine MRI 05/13/167 Signed Impressions: Service Date/Time: May 16:24 - CONCLUSION: 1. Mild stenosis at L2-L3 without acute disc protrusion. 2. Mild bilateral foraminal narrowing at L5-S1 Abhijit Barber MD Cervical Spine MRI 05/13/167 Signed Impressions: Service Date/Time: May 16:24 - CONCLUSION: 1. Postsurgical changes as above. 2. Osteophytic spur to the left at C6-C7 flattening the thecal sac and cord with mild stenosis. CT scan is recommended for further evaluation if clinically indicated. Abhijit Barber MD Brain MRI 05/13/167 Signed Impressions: Service Date/Time: May 16:24 - CONCLUSION: 1. No evidence of acute intracranial pathology. No masses are identified. Abhijit Barber MD Head CT 05/13/16 1135 Signed Impressions: Service Date/Time: May 12:46 - CONCLUSION: 1. No acute intracranial abnormality. Antione Dowell MD Chest X-Ray 05/13/161134 Signed Impressions: Service Date/Time: May 11:56 - CONCLUSION: 1. Mild, chronic interstitial changes. No acute abnormality. Antione Dowell MD Procedures No procedures performed. Other Results Laboratory Tests Test 05/13/16 05/13/16 05/14/16 05/15/16 12:10 18:05 09:04 01:25 Prothrombin Time 13.3 SEC Prothromb Time International 1.2 RATIO Ratio Activated Partial 26.6 SEC Thromboplast Time Total Bilirubin 1.8 MG/DL Aspartate Amino Transf 30 U/L (AST/SGOT) Alanine Aminotransferase 19 U/L (ALT/SGPT) Alkaline Phosphatase 371 U/L Total Protein 6.6 GM/DL Albumin 2.8 GM/DL Hemoglobin A1c 11.5 % Urine Color YELLOW Urine Turbidity HAZY Urine pH 6.0 Urine Specific Grover 1.031 Urine Protein NEG mg/dL Urine Glucose (UA) 1000 mg/dL Urine Ketones NEG mg/dL Urine Occult Blood NEG Urine Nitrite NEG Urine Bilirubin NEG Urine Urobilinogen LESS THAN 2.0 MG/DL Urine Leukocyte Esterase LARGE Urine RBC 11 /hpf Urine WBC 57 /hpf Urine Squamous Epithelial 2 /hpf Cells Urine Bacteria RARE /hpf Microscopic Urinalysis Comment CULTURE INDICATED Ammonia 50 MCMOL/L White Blood Count 15.5 TH/MM3 Red Blood Count 4.81 MIL/MM3 Hemoglobin 15.1 GM/DL Hematocrit 43.8 % Mean Corpuscular Volume 91.2 FL Mean Corpuscular Hemoglobin 31.4 PG Mean Corpuscular Hemoglobin 34.4 % Concent Red Cell Distribution Width 15.0 % Platelet Count 172 TH/MM3 Mean Platelet Volume 9.0 FL Neutrophils (%) (Auto) 50.4 % Lymphocytes (%) (Auto) 32.5 % Monocytes (%) (Auto) 14.7 % Eosinophils (%) (Auto) 1.8 % Basophils (%) (Auto) 0.6 % Neutrophils # (Auto) 7.8 TH/MM3 Lymphocytes # (Auto) 5.0 TH/MM3 Monocytes # (Auto) 2.3 TH/MM3 Eosinophils # (Auto) 0.3 TH/MM3 Basophils # (Auto) 0.1 TH/MM3 CBC Comment AUTO DIFF Differential Total Cells 100 Counted Neutrophils % (Manual) 57 % Band Neutrophils % 1 % Lymphocytes % 23 % Monocytes % 13 % Eosinophils % 1 % Basophils % 4 % Neutrophils # (Manual) 9.1 TH/MM3 Metamyelocytes 1 % Differential Comment FINAL DIFF MANUAL Atypical Lymphocytes % Platelet Estimate NORMAL Platelet Morphology Comment NORMAL Red Cell Morphology Comment NORMAL Sodium Level 141 MEQ/L Potassium Level 3.7 MEQ/L Chloride Level 107 MEQ/L Carbon Dioxide Level 22.6 MEQ/L Anion Gap 11 MEQ/L Blood Urea Nitrogen 7 MG/DL Creatinine 1.13 MG/DL Estimat Glomerular Filtration 50 ML/MIN Rate Random Glucose 197 MG/DL Calcium Level 9.7 MG/DL Magnesium Level 1.6 MG/DL Vitamin B12 Level 1529 PG/ML Thyroid Stimulating Hormone 1.190 uIU/ML 3rd Gen Objective Remarks GENERAL: Obesity, No distress. SKIN: Red Rash to right hand HEAD: Atraumatic. Normocephalic. EYES: Pupils equal round and reactive. ENT: Nose without bleeding, purulent drainage or septal hematoma. Airway patent. NECK: Trachea midline. No JVD CARDIOVASCULAR: Regular rate and rhythm without murmurs. RESPIRATORY: Clear to auscultation. Breath sounds equal bilaterally. No wheezes , rales, or rhonchi. GASTROINTESTINAL: Abdomen soft, tender on palpation generalized. MUSCULOSKELETAL: Extremities without clubbing, cyanosis, or edema. No joint tenderness, effusion, or edema noted. No calf tenderness. NEUROLOGICAL: Awake and alert. Motor and sensory grossly within normal limits. Normal speech. Medications and IVs Current Medications Medications (Trade) Dose Ordered Sig/Daivd Route Start Time Stop Time Status Last Admin (NS Flush) 2 ml UNSCH PRN FLUSH 05/13/16 19:00 (NS Flush) 2 ml BID FLUSH 05/13/16 21:00 05/17/16 08:24 (Tylenol) 650 mg Q4H PRN PO 05/13/16 19:00 (Zofran Inj) 4 mg Q6H PRN IVP 05/13/16 19:00 05/14/16 10:51 (Milk Of Magnesia Liq) 30 ml Q12H PRN PO 05/13/16 19:00 (Narcan Inj) 0.4 mg UNSCH PRN IV 05/13/16 19:00 (D50w (Vial) Inj) 25 ml UNSCH PRN IV PUSH 05/13/16 19:00 (Glucagon Inj) 1 mg UNSCH PRN OTHER 05/13/16 19:00 (Lactulose Liq) 30 ml TID PO 05/14/16 00:00 05/17/16 08:22 (Buspar) 20 mg BID PO 05/14/16 09:00 05/17/16 08:23 (Lasix) 20 mg DAILY PO 05/14/16 09:00 05/17/16 08:23 (Neurontin) 100 mg TID PO 05/14/16 09:00 05/17/16 08:23 (Proamatine) 5 mg BID PO 05/14/16 09:00 05/17/16 08:22 (Protonix) 20 mg DAILY PO 05/14/16 09:00 05/17/16 08:24 (Pravachol) 20 mg HS PO 05/14/16 21:00 05/16/16 21:04 (Aldactone) 50 mg DAILY PO 05/14/16 09:00 05/17/16 08:23 (Xifaxan) 550 mg BID PO 05/14/16 09:00 05/17/16 08:22 (Zanaflex) 4 mg TID PO 05/14/16 09:00 05/17/16 08:23 (Msir) 15 mg Q4H PRN PO 05/14/16 11:00 05/14/16 13:10 Ibuprofen 600 mg 600 mg Q6H PRN PO 05/14/16 19:30 05/16/16 10:35 Ceftriaxone Sodium 1000 mg/ Sodium Chloride 100 ml @ 200 mls/hr Q24H IV 05/14/16 20:00 05/16/16 21:05 (NS 1000 ml Inj) 1,000 ml @ 84 mls/hr [id number] IV 05/15/16 15:15 05/17/16 03:00 A/P Assessment and Plan 1. Hypertension controlled. continue IV fluids by now. 2. DM II continue sliding scale. Hemoglobin A1C 11.5 Poorly controlled, while in house continue sliding scale. today mild uncontrol. the patient is eating better without Nausea or vomit. 3. UTI on Cipro every 12 hours. switch to Ceftriaxone, afebrile. 4. Hepatic Encephalopathy/Cirrhosis/Hyperammonemia stable no signs of acute Hepatic Encephalopathy. 5. Generalized weakness probable secondary to #4 MRI of Cervical spine showed osteophytic spur to the left C6-C7 flattening the thecal sac and cord mild stenosis, Mild stenosis at the level of L2-L3 without acute disc protrusion. Mild bilateral foraminal narrowing at L5-S1. follow EEG, TSH, PT. as per Neurosurgery specialist will follow as outpatient no further management at this time. 6. Fever/Sepsis asked for blood cultures. switch to Ceftriaxone, following Urine culture negative so far. blood culture negative, no afebrile. 7. Recurrent Syncope asked for Echocardiogram and rac specialist consult. 8. electrolyte derangement replaced. and continue DVT prophylaxis: SCDs Discharge Planning Expected by tomorrow. Maurice Real MD May 17, 2016 09:05 Maurice Real MD May 17, 2016 09:05
[2016-05-17] MEDS: INSULIN NovoLIN REGULAR SUPPLEMENTAL SCALE SQ SCH ×3 (11:00→21:30)
[2016-05-17 12:00] VITALS: BP_SYST 90; BP_SYST 94; BP_DIAS 52; PULSE 56; RESP 16; TEMP 96.4; O2SAT 99
--- NOTE | 2016-05-17 14:22 | PD.CARD.PN ---
Subjective Subjective Remarks alert in nad Objective Vital Signs / I&O Vital Signs Date Time Temp Pulse Resp B/P Pulse Ox O2 Delivery O2 Flow Rate FiO2 05/17/16 12:00 96.4 56 16 90/52 99 94/52 05/17/16 08:00 96.5 60 17 124/66 98 05/17/16 03:10 98.3 69 18 115/62 97 05/16/16 20:00 98.4 60 20 105/46 97 05/16/16 19:49 62 05/16/16 16:00 96.9 77 17 101/56 97 I/O 05/16/16 05/16/16 05/16/16 05/17/16 05/17/16 05/17/16 07:00 15:00 23:00 07:00 15:00 23:00 Intake Total 2039 ml 1006 ml 1020 ml 0 ml Balance 2039 ml 1006 ml 1020 ml 0 ml Intake Oral 480 ml 480 ml 240 ml 0 ml IV Total 1559 ml 526 ml 780 ml # Voids 2 1 3 2 # Bowel Movements 0 2 1 Physical Exam GENERAL: SKIN: Warm and dry. HEAD: Normocephalic. EYES: No scleral icterus. No injection or drainage. NECK: Supple, trachea midline. No JVD or lymphadenopathy. CARDIOVASCULAR: Regular rate and rhythm without murmurs, gallops, or rubs. RESPIRATORY: Breath sounds equal bilaterally. No accessory muscle use. GASTROINTESTINAL: Abdomen soft, non-tender, nondistended. MUSCULOSKELETAL: No cyanosis, or edema. BACK: Nontender without obvious deformity. No CVA tenderness. Assessment and Plan Problem List: (1) DM (diabetes mellitus) (2) HTN (hypertension) Assessment and Plan 1.) Syncope - carotid us no significant obstruction, f/u 2d echo Problem Qualifiers (1) DM (diabetes mellitus): Qualified Code: E11.8 - Type 2 diabetes mellitus with complication, without long-term current use of insulin Jordan Guillen MD May 17, 2016 14:22
--- NOTE | 2016-05-17 15:16 | EC ---
Study Study Date:05/17/2016 STUDY CONCLUSIONS SUMMARY - Left ventricle: The cavity size was normal. Wall thickness was normal. Systolic function was normal. The estimated ejection fraction was 55%, in the range of 50% to 55%. Wall motion was normal; there were no regional wall motion abnormalities. - Mitral valve: Mildly calcified annulus. - Pulmonary arteries: PA peak pressure: 38mm Hg (S). If LV function is below 40, please consider prescribing an ACEI or ARB or document rationale for non-use. PROCEDURE DATA STUDY STATUS: Elective. Procedure: Transthoracic echocardiography. Image quality was good. Scanning was performed from the parasternal, apical, and subcostal acoustic windows. Study completion: The patient tolerated the procedure well. Transthoracic echocardiography. M-mode, complete 2D, complete spectral Doppler, and color Doppler. Patient status: Inpatient. CARDIAC ANATOMY LEFT VENTRICLE: The cavity size was normal. Wall thickness was normal. Systolic function was normal. The estimated ejection fraction was 55%, in the range of 50% to 55%. Wall motion was normal; there were no regional wall motion abnormalities. AORTIC VALVE: Trileaflet; normal thickness leaflets. Doppler: Transvalvular velocity was within the normal range. There was no stenosis. No regurgitation. AORTA: Aortic root: The aortic root was normal in size. MITRAL VALVE: Mildly calcified annulus. Doppler: Transvalvular velocity was within the normal range. There was no evidence for stenosis. Trace regurgitation. Mean gradient: 2mm Hg (D). Peak gradient: 7mm Hg (D). LEFT ATRIUM: The atrium was normal in size. RIGHT VENTRICLE: The cavity size was normal. Wall thickness was normal. PULMONIC VALVE: Doppler: Transvalvular velocity was within the normal range. There was no evidence for stenosis. No regurgitation. TRICUSPID VALVE: Structurally normal valve. Doppler: Transvalvular velocity was within the normal range. Trace regurgitation. PULMONARY ARTERY: The main pulmonary artery was normal-sized. Systolic pressure was within the normal range. RIGHT ATRIUM: The atrium was normal in size. PERICARDIUM: There was no pericardial effusion. SYSTEMIC VEINS: Inferior vena cava: The vessel was normal in size. BASIC MEASUREMENTS ADULT Normal Left ventricle LV internal dimension, ED, chordal level, *58 mm 43-52 PLAX LV internal dimension, ES, chordal level, *43.5 mm 23-38 PLAX Fractional shortening, chordal level, PLAX *25 % >29 LV posterior wall thickness, ED 7.81 mm IVS/LVPW ratio, ED *1.51 <1.3 Ventricular septum Septal thickness, ED 11.8 mm Aortic valve Leaflet separation 21 mm 15-26 Left atrium Anterior-posterior dimension 33 mm Right ventricle RV internal dimension, ED, PLAX 24.7 mm 19-38 BASIC MEASUREMENTS ADULT Normal Aortic valve Leaflet separation 21 mm 15-26 Aorta Root diameter, ED 30 mm 20-37 DOPPLER MEASUREMENTS ADULT Normal Main pulmonary artery Pressure, S *38 mm Hg =30 Aortic valve VTI, S 59.2 cm Mitral valve Peak E-wave velocity 113 cm/s Peak A-wave velocity 84.5 cm/s Mean velocity, D 70.8 cm/s Mean gradient, D 2 mm Hg Peak gradient, D 7 mm Hg Peak E/A ratio 1.3 Tricuspid valve Regurgitant peak velocity 288 cm/s Peak RV-RA gradient, S 33 mm Hg Maximal regurgitant velocity 288 cm/s Systemic veins Estimated CVP 5 mm Hg Right ventricle RV pressure, S *38 mm Hg <30 LEGEND: Mean values are shown as u=mean value. Asterisk (*) see values outside specified normal range. Prepared and signed by Eze Anthony [id number]
[2016-05-17 15:59] VITALS: BP 116/62; PULSE 58; RESP 15; TEMP 97.3; O2SAT 98
[2016-05-17] MEDS: cefTRIAXone INJ 1,000 MG in SODIUM CHLORIDE 0.9% INJ 100 ML IV SCH (19:56)
[2016-05-17] MEDS: PRAVASTATIN SOD 20 MG TAB PO SCH (19:57)
[2016-05-17 20:00] VITALS: BP 119/54; PULSE 61; RESP 20; TEMP 96.7; O2SAT 94
[2016-05-17] MEDS: MORPHINE SULFATE 15 MG TAB PO PRN (21:30)
[2016-05-17 23:13] VITALS: PULSE 59
[2016-05-18] VITALS: BP 118/55; PULSE 58; RESP 20; TEMP 96.4; O2SAT 94
[2016-05-18 04:00] VITALS: BP 92/53; PULSE 60; RESP 19; TEMP 96.2; O2SAT 96
[2016-05-18] MEDS: SODIUM CHLOR 0.9% 1000 ML INJ 1,000 ML IV SCH (04:38)
[2016-05-18] MEDS: INSULIN NovoLIN REGULAR SUPPLEMENTAL SCALE SQ SCH ×3 (04:38→15:53)
[2016-05-18 07:47] VITALS: PULSE 63
[2016-05-18] MEDS: FUROSEMIDE 20 MG TAB PO SCH (07:49)
[2016-05-18] MEDS: MORPHINE SULFATE 15 MG TAB PO PRN (07:49)
[2016-05-18] MEDS: SPIRONOLACTONE 50 MG TAB PO SCH (07:49)
[2016-05-18] MEDS: GABAPENTIN 100 MG CAP PO SCH ×2 (07:49→11:27)
[2016-05-18] MEDS: LACTULOSE SYRUP 20 GM/30 ML CUP PO SCH ×2 (07:49→11:26)
[2016-05-18] MEDS: busPIRone HCL 10 MG TAB PO SCH (07:49)
[2016-05-18] MEDS: RIFAXIMIN 550 MG TAB PO SCH (07:49)
[2016-05-18] MEDS: MIDODRINE 5 MG TAB PO SCH (07:49)
[2016-05-18] MEDS: PANTOPRAZOLE SOD 20 MG DELAYED RELEASE TAB PO SCH (07:49)
[2016-05-18] MEDS: SODIUM CHLORIDE 0.9% FLUSH 5 ML FLUSH FLUSH SCH (07:50)
[2016-05-18 08:00] VITALS: BP 98/54; PULSE 66; RESP 18; TEMP 98; O2SAT 93
[2016-05-18 12:00] VITALS: BP 92/51; PULSE 87; RESP 19; TEMP 98.8; O2SAT 97
[2016-05-18 12:14] LABS: BASOPHIL % 0.5 % (0.0-2.0); EOSINOPHIL # 0.2 TH/MM3 (0-0.4); EOSINOPHIL % 2.3 % (0.0-4.0); HEMATOCRIT 38.6 % (35.0-46.0); HEMO FLAGS DIFF FINAL; LYMPH % 27.2 % (9.0-44.0); LYMPHOCYTE # 2.3 TH/MM3 (1.0-4.8); MEAN CELL VOLUME 91.5 FL (80.0-100.0); MEAN CORPUSCULAR HEMOGLOBIN 31.2 PG (27.0-34.0); MEAN CORPUSCULAR HGB CONC 34.1 % (32.0-36.0); MONO % 12.2 % (0.0-8.0); NEUT % 57.8 % (16.0-70.0); PLATELET COUNT 129 TH/MM3 (150-450); RED BLOOD COUNT 4.21 MIL/MM3 (4.00-5.30); RED CELL DISTRIBUTION WIDTH 14.7 % (11.6-17.2); WHITE BLOOD COUNT 8.6 TH/MM3 (4.0-11.0)
--- NOTE | 2016-05-18 12:31 | PD.CARD.PN ---
Subjective Subjective Remarks alert in nad Objective Vital Signs / I&O Vital Signs Date Time Temp Pulse Resp B/P Pulse Ox O2 Delivery O2 Flow Rate FiO2 05/18/16 08:49 18 05/18/16 08:00 98.0 66 18 98/54 93 05/18/16 07:47 63 05/18/16 04:00 96.2 60 19 92/53 96 05/18/16 00:00 96.4 58 20 118/55 94 05/17/16 23:13 59 05/17/16 20:00 96.7 61 20 119/54 94 05/17/16 15:59 97.3 58 15 116/62 98 I/O 05/17/16 05/17/16 05/17/16 05/18/16 05/18/16 05/18/16 07:00 15:00 23:00 07:00 15:00 23:00 Intake Total 0 ml 1300 ml 566 ml 866 ml Balance 0 ml 1300 ml 566 ml 866 ml Intake Oral 0 ml 1300 ml 240 ml 240 ml IV Total 326 ml 626 ml # Voids 2 3 2 3 # Bowel Movements 1 1 2 1 Physical Exam GENERAL: SKIN: Warm and dry. HEAD: Normocephalic. EYES: No scleral icterus. No injection or drainage. NECK: Supple, trachea midline. No JVD or lymphadenopathy. CARDIOVASCULAR: Regular rate and rhythm without murmurs, gallops, or rubs. RESPIRATORY: Breath sounds equal bilaterally. No accessory muscle use. GASTROINTESTINAL: Abdomen soft, non-tender, nondistended. MUSCULOSKELETAL: No cyanosis, or edema. BACK: Nontender without obvious deformity. No CVA tenderness. Laboratory Laboratory Tests Test 05/18/16 11:59 White Blood Count 8.6 TH/MM3 Red Blood Count 4.21 MIL/MM3 Hemoglobin 13.1 GM/DL Hematocrit 38.6 % Mean Corpuscular Volume 91.5 FL Mean Corpuscular Hemoglobin 31.2 PG Mean Corpuscular Hemoglobin 34.1 % Concent Red Cell Distribution Width 14.7 % Platelet Count 129 TH/MM3 Mean Platelet Volume 8.7 FL Neutrophils (%) (Auto) 57.8 % Lymphocytes (%) (Auto) 27.2 % Monocytes (%) (Auto) 12.2 % Eosinophils (%) (Auto) 2.3 % Basophils (%) (Auto) 0.5 % Neutrophils # (Auto) 5.0 TH/MM3 Lymphocytes # (Auto) 2.3 TH/MM3 Monocytes # (Auto) 1.0 TH/MM3 Eosinophils # (Auto) 0.2 TH/MM3 Basophils # (Auto) 0.0 TH/MM3 CBC Comment DIFF FINAL Differential Comment Assessment and Plan Problem List: (1) DM (diabetes mellitus) (2) HTN (hypertension) Assessment and Plan 1.) Syncope - 2d echo wnl and carotid us no significant obstruction, rec caution with standing, consider kimberly hose, optimize nutrition, prn increase sodium and fluid intake when symptomatic and hypotensive Problem Qualifiers (1) DM (diabetes mellitus): Qualified Code: E11.8 - Type 2 diabetes mellitus with complication, without long-term current use of insulin Jordan Guillen MD May 18, 2016 12:31
[2016-05-18 12:39] LABS: BICARBONATE 25.7 MEQ/L (21.0-32.0); MAGNESIUM 1.3 MG/DL (1.5-2.5); POTASSIUM 3.9 MEQ/L (3.5-5.1)
[2016-05-18] MEDS ORDERED: MAGNESIUM OXIDE 400 MG TAB PO SCH (12:45)
--- NOTE | 2016-05-18 12:52 | HHI.PR ---
Subjective Remarks This is a pleasant 56 y/o Female who came to ER with weakness, confusion, Numbness RUE, Hepatic encephalopathy, Hyperglycemia, has Hypertension, DM II, Cirrhosis, has Bilateral lower extremity numbness and dizziness, Tremors, seen by Neurology specialist and Neurosurgery read full dictation by physicians, no further management at this time. Patient stable with her and nurse Miss Cameron in the room, no Nausea, vomit or diarrhea. Seen by processing specialist Doctor Jordan Guillen the patient has Syncope her Echocardiogram within normal limits, Carotid US no significant obstruction, recommended caution with Standing, consider to continue Valente Hose, optimize nutrition, PRN increase Sodium intake and fluid intake when symptomatic and hypotensive will discharge later today after finished her Magnesium replacement. Objective Vital Signs Date Time Temp Pulse Resp B/P Pulse Ox O2 Delivery O2 Flow Rate FiO2 05/18/16 08:49 18 05/18/16 08:00 98.0 66 18 98/54 93 05/18/16 07:47 63 05/18/16 04:00 96.2 60 19 92/53 96 05/18/16 00:00 96.4 58 20 118/55 94 05/17/16 23:13 59 05/17/16 20:00 96.7 61 20 119/54 94 05/17/16 15:59 97.3 58 15 116/62 98 I/O 05/17/16 05/17/16 05/17/16 05/18/16 05/18/16 05/18/16 07:00 15:00 23:00 07:00 15:00 23:00 Intake Total 0 ml 1300 ml 566 ml 866 ml Balance 0 ml 1300 ml 566 ml 866 ml Intake Oral 0 ml 1300 ml 240 ml 240 ml IV Total 326 ml 626 ml # Voids 2 3 2 3 # Bowel Movements 1 1 2 1 Result Diagram: 05/18/16 1159 05/18/16 1149 Imaging Last Impressions Carotid Artery Ultrasound 05/16/16 0000 Signed Impressions: Service Date/Time: Monday, May 16, 2016 19:42 - CONCLUSION: 1. No evidence for hemodynamically significant stenosis. Jorge Luis Severino MD Thoracic Spine MRI 05/13/16 1327 Signed Impressions: Service Date/Time: May 16:24 - CONCLUSION: Normal examination. Kevin Larry MD Lumbar Spine MRI 05/13/161326 Signed Impressions: Service Date/Time: May 16:24 - CONCLUSION: 1. Mild stenosis at L2-L3 without acute disc protrusion. 2. Mild bilateral foraminal narrowing at L5-S1 Abhijit Barber MD Cervical Spine MRI 05/13/161326 Signed Impressions: Service Date/Time: May 16:24 - CONCLUSION: 1. Postsurgical changes as above. 2. Osteophytic spur to the left at C6-C7 flattening the thecal sac and cord with mild stenosis. CT scan is recommended for further evaluation if clinically indicated. Abhijit Barber MD Brain MRI 05/13/161326 Signed Impressions: Service Date/Time: May 16:24 - CONCLUSION: 1. No evidence of acute intracranial pathology. No masses are identified. Abhijit Barber MD Head CT 05/13/161134 Signed Impressions: Service Date/Time: May 12:46 - CONCLUSION: 1. No acute intracranial abnormality. Antione Dowell MD Chest X-Ray 05/13/161134 Signed Impressions: Service Date/Time: May 11:56 - CONCLUSION: 1. Mild, chronic interstitial changes. No acute abnormality. Antione Dowell MD Procedures No procedures performed. Other Results Laboratory Tests Test 05/13/16 05/14/16 05/15/16 05/18/16 12:10 09:04 01:25 11:49 Hemoglobin A1c 11.5 % Ammonia 50 MCMOL/L Differential Total Cells 100 Counted Neutrophils % (Manual) 57 % Band Neutrophils % 1 % Lymphocytes % 23 % Monocytes % 13 % Eosinophils % 1 % Basophils % 4 % Neutrophils # (Manual) 9.1 TH/MM3 Metamyelocytes 1 % Atypical Lymphocytes % Platelet Estimate NORMAL Platelet Morphology Comment NORMAL Red Cell Morphology Comment NORMAL Vitamin B12 Level 1529 PG/ML Thyroid Stimulating Hormone 1.190 uIU/ML 3rd Gen Sodium Level 144 MEQ/L Potassium Level 3.9 MEQ/L Chloride Level 107 MEQ/L Carbon Dioxide Level 25.7 MEQ/L Anion Gap 11 MEQ/L Blood Urea Nitrogen 7 MG/DL Creatinine 0.84 MG/DL Estimat Glomerular Filtration 70 ML/MIN Rate Random Glucose 226 MG/DL Calcium Level 8.9 MG/DL Phosphorus Level 2.7 MG/DL Magnesium Level 1.3 MG/DL Test 05/18/16 11:59 White Blood Count 8.6 TH/MM3 Red Blood Count 4.21 MIL/MM3 Hemoglobin 13.1 GM/DL Hematocrit 38.6 % Mean Corpuscular Volume 91.5 FL Mean Corpuscular Hemoglobin 31.2 PG Mean Corpuscular Hemoglobin 34.1 % Concent Red Cell Distribution Width 14.7 % Platelet Count 129 TH/MM3 Mean Platelet Volume 8.7 FL Neutrophils (%) (Auto) 57.8 % Lymphocytes (%) (Auto) 27.2 % Monocytes (%) (Auto) 12.2 % Eosinophils (%) (Auto) 2.3 % Basophils (%) (Auto) 0.5 % Neutrophils # (Auto) 5.0 TH/MM3 Lymphocytes # (Auto) 2.3 TH/MM3 Monocytes # (Auto) 1.0 TH/MM3 Eosinophils # (Auto) 0.2 TH/MM3 Basophils # (Auto) 0.0 TH/MM3 CBC Comment DIFF FINAL Differential Comment Objective Remarks GENERAL: Obesity, No distress. SKIN: Red Rash to right hand HEAD: Atraumatic. Normocephalic. EYES: Pupils equal round and reactive. ENT: Nose without bleeding, purulent drainage or septal hematoma. Airway patent. NECK: Trachea midline. No JVD CARDIOVASCULAR: Regular rate and rhythm without murmurs. RESPIRATORY: Clear to auscultation. Breath sounds equal bilaterally. No wheezes , rales, or rhonchi. GASTROINTESTINAL: Abdomen soft, tender on palpation generalized. MUSCULOSKELETAL: Extremities without clubbing, cyanosis, or edema. No joint tenderness, effusion, or edema noted. No calf tenderness. NEUROLOGICAL: Awake and alert. Motor and sensory grossly within normal limits. Normal speech. Medications and IVs Current Medications Medications (Trade) Dose Ordered Sig/David Route Start Time Stop Time Status Last Admin (NS Flush) 2 ml UNSCH PRN FLUSH 05/13/16 19:00 (NS Flush) 2 ml BID FLUSH 05/13/16 21:00 05/17/16 08:24 (Tylenol) 650 mg Q4H PRN PO 05/13/16 19:00 (Zofran Inj) 4 mg Q6H PRN IVP 05/13/16 19:00 05/14/16 10:51 (Milk Of Magnesia Liq) 30 ml Q12H PRN PO 05/13/16 19:00 (Narcan Inj) 0.4 mg UNSCH PRN IV 05/13/16 19:00 (D50w (Vial) Inj) 25 ml UNSCH PRN IV PUSH 05/13/16 19:00 (Glucagon Inj) 1 mg UNSCH PRN OTHER 05/13/16 19:00 (Lactulose Liq) 30 ml TID PO 05/14/16 00:00 05/18/16 11:26 (Buspar) 20 mg BID PO 05/14/16 09:00 05/18/16 07:49 (Lasix) 20 mg DAILY PO 05/14/16 09:00 05/18/16 07:49 (Neurontin) 100 mg TID PO 05/14/16 09:00 05/18/16 11:27 (Proamatine) 5 mg BID PO 05/14/16 09:00 05/18/16 07:49 (Protonix) 20 mg DAILY PO 05/14/16 09:00 05/18/16 07:49 (Pravachol) 20 mg HS PO 05/14/16 21:00 05/17/16 19:57 (Aldactone) 50 mg DAILY PO 05/14/16 09:00 05/18/16 07:49 (Xifaxan) 550 mg BID PO 05/14/16 09:00 05/18/16 07:49 (Zanaflex) 4 mg TID PO 05/14/16 09:00 05/18/16 11:27 (Msir) 15 mg Q4H PRN PO 05/14/16 11:00 05/18/16 07:49 Ibuprofen 600 mg 600 mg Q6H PRN PO 05/14/16 19:30 05/16/16 10:35 Ceftriaxone Sodium 1000 mg/ Sodium Chloride 100 ml @ 200 mls/hr Q24H IV 05/14/16 20:00 05/17/16 19:56 (NS 1000 ml Inj) 1,000 ml @ 84 mls/hr [id number] IV 05/15/16 15:15 05/18/16 04:38 A/P Assessment and Plan 1. Hypertension controlled. Removed IV fluids. 2. DM II continue sliding scale. Hemoglobin A1C 11.5 Poorly controlled, while in house continue sliding scale. today mild uncontrol. the patient is eating better without Nausea or vomit. 3. UTI on Cipro every 12 hours. switch to Ceftriaxone, afebrile. 4. Hepatic Encephalopathy/Cirrhosis/Hyperammonemia stable no signs of acute Hepatic Encephalopathy. 5. Generalized weakness probable secondary to #4 MRI of Cervical spine showed osteophytic spur to the left C6-C7 flattening the thecal sac and cord mild stenosis, Mild stenosis at the level of L2-L3 without acute disc protrusion. Mild bilateral foraminal narrowing at L5-S1. follow EEG, TSH, PT. as per Neurosurgery specialist will follow as outpatient no further management at this time. 6. Fever/Sepsis asked for blood cultures. switch to Ceftriaxone, following Urine culture negative so far. blood culture negative, no fever. 7. Recurrent Syncope as per processing specialist Echocardiogram within normal limits, Carotid US No significant obstruction, recommended caution with standing, consider VALENTE hose, optimize nutrition PRN increase sodium and fluid intake when symptomatic and hypotensive. 8. electrolyte derangement replaced and discharge after completed replacement. DVT prophylaxis: SCDs Discharge Planning Expected after Electrolyte replacement performed. Maurice Stephens MD May 18, 2016 12:52
[2016-05-18] MEDS ORDERED: MAGN400T3 PO (12:57)
[2016-05-18] MEDS ORDERED: CIPR-9 PO (12:57)
--- NOTE | 2016-05-18 13:01 | HHI.DS ---
Discharge Summary Admission Date May 13, 2016 at 18:17 Discharge Date: May 18, 2016 Admitting Diagnosis hepatic encephalopahty, hyperglycemia (1) UTI (urinary tract infection) ICD Code: N39.0 Diagnosis: Principal (2) Hyperammonemia ICD Code: E72.20 Diagnosis: Principal (3) Generalized weakness ICD Code: R53.1 Diagnosis: Principal (4) DM (diabetes mellitus) ICD Code: E11.9 Diagnosis: Secondary Procedures No procedures performed to the patient Brief History - From Admission 56 y/o female with a history of HTN, DM(not on any medication), cirrhosis, and hepatic encephalopathy presents to the ED with complaints of right upper extremity numbness, bilateral lower extremities and dizziness. Patient states she has been feeling this way for about a week and she has been falling at home. She is unsure if she has had any LOC. Patient's states at times she has witnessed her sitting in the chair and she has gone limp, but then she would wake up. He states over the last 3 weeks the patient has been getting weaker and having blurry vision. Her last fall at home was Tuesday. He states she complains of constant headaches, with some confusion at times. He states he confusion comes and goes daily. She is also complaining of severe abdominal pain throughout. Denies constipation , states she does have multiple bowl movements a day. She denies any chest pain, nausea, fever or chills. Per the patients she was taken off her metformin, and metoprolol one year ago, and does not take her sugar at home. She did take prednisone 2 weeks ago. She is also wheelchair bound at home. Her PCP is a with [facility]. CBC/BMP: 05/18/16 1159 05/18/16 1149 Significant Findings Laboratory Tests Test 05/18/16 05/18/16 11:49 11:59 Estimat Glomerular Filtration 70 ML/MIN (>89) Rate Random Glucose 226 MG/DL (74-106) Magnesium Level 1.3 MG/DL (1.5-2.5) Platelet Count 129 TH/MM3 (150-450) Monocytes (%) (Auto) 12.2 % (0.0-8.0) Monocytes # (Auto) 1.0 TH/MM3 (0-0.9) Imaging Last Impressions Carotid Artery Ultrasound 05/16/16 0000 Signed Impressions: Service Date/Time: Monday, May 16, 2016 19:42 - CONCLUSION: 1. No evidence for hemodynamically significant stenosis. Jorge Luis Severino MD Thoracic Spine MRI 05/13/161326 Signed Impressions: Service Date/Time: May 16:24 - CONCLUSION: Normal examination. Kevin Larry MD Lumbar Spine MRI 05/13/161326 Signed Impressions: Service Date/Time: May 16:24 - CONCLUSION: 1. Mild stenosis at L2-L3 without acute disc protrusion. 2. Mild bilateral foraminal narrowing at L5-S1 Abhijit Barber MD Cervical Spine MRI 05/13/161326 Signed Impressions: Service Date/Time: May 16:24 - CONCLUSION: 1. Postsurgical changes as above. 2. Osteophytic spur to the left at C6-C7 flattening the thecal sac and cord with mild stenosis. CT scan is recommended for further evaluation if clinically indicated. Abhijit Barber MD Brain MRI 05/13/161326 Signed Impressions: Service Date/Time: May 16:24 - CONCLUSION: 1. No evidence of acute intracranial pathology. No masses are identified. Abhijit Barber MD Head CT 05/13/16 1135 Signed Impressions: Service Date/Time: May 12:46 - CONCLUSION: 1. No acute intracranial abnormality. Antione Dowell MD Chest X-Ray 05/13/161134 Signed Impressions: Service Date/Time: May 11:56 - CONCLUSION: 1. Mild, chronic interstitial changes. No acute abnormality. Antione Dowell MD PE at Discharge GENERAL: Obesity, No distress. SKIN: Red Rash to right hand HEAD: Atraumatic. Normocephalic. EYES: Pupils equal round and reactive. ENT: Nose without bleeding, purulent drainage or septal hematoma. Airway patent. NECK: Trachea midline. No JVD CARDIOVASCULAR: Regular rate and rhythm without murmurs. RESPIRATORY: Clear to auscultation. Breath sounds equal bilaterally. No wheezes , rales, or rhonchi. GASTROINTESTINAL: Abdomen soft, tender on palpation generalized. MUSCULOSKELETAL: Extremities without clubbing, cyanosis, or edema. No joint tenderness, effusion, or edema noted. No calf tenderness. NEUROLOGICAL: Awake and alert. Motor and sensory grossly within normal limits. Normal speech. Hospital Course This is a pleasant 56 y/o Female who came to ER with weakness, confusion, Numbness RUE, Hepatic encephalopathy, Hyperglycemia, has Hypertension, DM II, Cirrhosis, has Bilateral lower extremity numbness and dizziness, Tremors, seen by Neurology specialist and Neurosurgery read full dictation by physicians, no further management at this time. Patient stable with her and nurse Miss Cameron in the room, no Nausea, vomit or diarrhea. Seen by marketing services specialist Doctor Jordan Guillen the patient has Syncope her Echocardiogram within normal limits, Carotid US no significant obstruction, recommended caution with Standing, consider to continue Valente Hose, optimize nutrition, PRN increase Sodium intake and fluid intake when symptomatic and hypotensive will discharge later today after finished her Magnesium replacement. 1. Hypertension controlled. Removed IV fluids. 2. DM II continue sliding scale. Hemoglobin A1C 11.5 Poorly controlled, while in house continue sliding scale. today mild uncontrol. the patient is eating better without Nausea or vomit. 3. UTI on Cipro every 12 hours. switch to Ceftriaxone, afebrile. 4. Hepatic Encephalopathy/Cirrhosis/Hyperammonemia stable no signs of acute Hepatic Encephalopathy. 5. Generalized weakness probable secondary to #4 MRI of Cervical spine showed osteophytic spur to the left C6-C7 flattening the thecal sac and cord mild stenosis, Mild stenosis at the level of L2-L3 without acute disc protrusion. Mild bilateral foraminal narrowing at L5-S1. follow EEG, TSH, PT. as per Neurosurgery specialist will follow as outpatient no further management at this time. 6. Fever/Sepsis asked for blood cultures. switch to Ceftriaxone, following Urine culture negative so far. blood culture negative, no fever. 7. Recurrent Syncope as per marketing services specialist Echocardiogram within normal limits, Carotid US No significant obstruction, recommended caution with standing, consider VALENTE hose, optimize nutrition PRN increase sodium and fluid intake when symptomatic and hypotensive. 8. electrolyte derangement replaced and discharge after completed replacement. DVT prophylaxis: SCDs Pt Condition on Discharge: Stable Discharge Disposition: Disch w/ Home Health Serv Discharge Time: > 30 minutes Discharge Instructions DIET: Follow Instructions for: Diabetic Diet Activities you can perform: Regular-No Restrictions Other Activity Instructions: The patient has already Physical Therapy management at home and will need to continue with Skilled nurse at home. Maurice Stephens MD May 18, 2016 13:01
--- NOTE | 2016-05-18 13:03 | HHI.FF ---
Face to Face Verification Diagnosis: (1) Depression (2) Impaired mobility and activities of daily living (3) Hepatic encephalopathy (4) Generalized weakness (5) UTI (urinary tract infection) (6) DM (diabetes mellitus) Physical Therapy Order: Evaluate and Treat Home Health Nursing Order: Medical education Signs/symptoms of disease process Diabetic education Nursing assessment with vital signs I have seen patient Nicki Ferrer on 05/18/16. My clinical findings support the need for the requested home health care services because: Ltd mobility - disease progression Deconditioned w/ increased weakness Limited ability to care for self I certify that my clinical findings support that this patient is homebound because: Unsteady gait/balance Unsafe to leave home unassisted Maurice Stephens MD May 18, 2016 13:03
[2016-05-18] MEDS: MAGNESIUM SULFATE 1 GM PREMIX 100 ML IV SCH (13:20)
== END 2016-05-18 17:14 | disposition home or self-care (01) | DRG 442 ==
LOC: NEPE 10:49 → NEDA 18:17 → NEDH 22:31 → N07A 05-14 13:41
PROVIDERS: ADMIT Internal Medicine; ATTEND Internal Medicine
DX: K72.90 Hepatic failure, unspecified without coma (principal); M47.12 Other spondylosis with myelopathy, cervical region; D69.6 Thrombocytopenia, unspecified; N39.0 Urinary tract infection, site not specified; E11.65 Type 2 diabetes mellitus with hyperglycemia; E83.42 Hypomagnesemia; F41.1 Generalized anxiety disorder; K74.60 Unspecified cirrhosis of liver; D75.1 Secondary polycythemia; R55 Syncope and collapse; I10 Essential (primary) hypertension; E78.5 Hyperlipidemia, unspecified; M48.06 Spinal stenosis, lumbar region; K21.9 Gastro-esophageal reflux disease without esophagitis; F17.210 Nicotine dependence, cigarettes, uncomplicated; Z91.14 Patient's other noncompliance with medication regimen; Z79.84 Long term (current) use of oral hypoglycemic drugs; Z99.3 Dependence on wheelchair; Z98.1 Arthrodesis status; Z23 Encounter for immunization
CPT/HCPCS: 70450; 70551; 71010; 72146; 72148; 72156; 76937; 80048; 80053; 81001; 82140; 82607; 82948; 83036; 83735; 84100; 84443; 85007; 85025; 85027; 85610; 85730; 87040; 87086; 90471; 90472; 90686; 90732; 93005; 93306; 93880; 95819; 96361; 96372; 96374; A9579; G0008; G0009; J0696; J0744; J1815; J2060; J2405; J3475; J7030; J7050; Q2038